=== PATIENT | female | born 1990 | race Hispanic/Latino ===

== ENCOUNTER 2021-07-17 09:11 | Emergency (ER) | payer BC ==
[2021-07-17 10:00] LABS: Urine Blood Negative (Negative); Urine Glucose Negative (Negative); Urine Protein Negative (Negative)
[2021-07-17 10:27] LABS: Absolute Lymphocytes (CBC) 1.7 K/uL (0.7-4.9); Basophils % 0.4 % (0-1.3); Hematocrit 38.3 % (36.0-45.0); Lymphocytes % 13.7 % (15.3-44.8); MPV 8.6 fL (7.6-11.3); RBC Red Blood Cell Count 4.19 M/uL (3.86-4.86)
[2021-07-17 10:35] LABS: ALT/SGPT 16 U/L (12-78); AST/SGOT 10 U/L (15-37); Albumin 3.1 g/dL (3.4-5.0); Alkaline Phosphatase 58 U/L (45-117); BUN Blood Urea Nitrogen 9 mg/dL (7-18); Bicarbonate 25 mmol/L (21-32); Bilirubin Direct < 0.1 mg/dL (0-0.2); Bilirubin Total 0.3 mg/dL (0.2-1.0); Glucose Level 95 mg/dL (74-106); Lipase 121 U/L (73-393); Potassium 3.7 mmol/L (3.5-5.1); Protein, Total 7.5 g/dL (6.4-8.2); Sodium Level 137 mmol/L (136-145); Uric Acid 3.4 mg/dL (2.6-6.0)
--- NOTE | 2021-07-17 10:56 | RAD REPORT ---
EXAM DESCRIPTION: US - OB Limited - 07/17/2021 10:43 am CLINICAL HISTORY: ABD PAIN COMPARISON: OB Complete dated 07/29/2017 FINDINGS: A single cephalic presenting gestation is identified. Heart rate normal. The placenta is a nterior. The cervix measures 4.2 cm and is closed. The right ovary was visualized and measures 4 cm and is oth erwise unremarkable. The femur length measures 2.3 cm which is consistent with 16 weeks 5 days. Single viable IUP with positive heart tones measuring 16 week 5 day with estimated delivery o f 12/27/2021.
--- NOTE | 2021-07-17 11:14 | ER ---
Nurse's Notes [facility] Name: Miryam Monge Age: 31 yrs Sex: Female : 1990 Arrival Date: 07/17/2021 Time: 09:16 Bed 19 Private MD: Nolvia Reyes Diagnosis: Nausea Presentation: 07/17 09:20 Chief complaint: Patient states: Pt is 17 weeks and began to feel dizzy and vg1 nausea a couple of hours ago and for the past three days has had a headache and had two nose bleeds yesterday. BP yesterday was 170/90. Was given BUT/ACETAMINOPHEN CAF by Dr Orozco, but pt wants to see whats going on before taking medication. Coronavirus screen: Vaccine status: Client denies travel out of the [place] in the last 14 days. Ebola Screen: Patient negative for fever greater than or equal to 101.5 degrees Fahrenheit, and additional compatible Ebola Virus Disease symptoms. Initial Sepsis Screen: Does the patient meet any 2 criteria? No. Patient's initial sepsis screen is negative. Does the patient have a suspected source of infection? No. Patient's initial sepsis screen is negative. Risk Assessment: Do you want to hurt yourself or someone else? Patient reports no desire to harm self or others. Onset of symptoms was July 14, 2021. 09:20 Method Of Arrival: Ambulatory [facility] 09:20 Acuity: GALINDO 3 vg1 Triage Assessment: 09:26 Headache History: The patient has had previous headaches and this one is similar to vg1 previous episodes. General: Appears in no apparent distress. uncomfortable, Behavior is calm, cooperative. Pain: Complains of pain in head Pain currently is 3 out of 10 on a pain scale. Pain began 2-3 days ago. Also complains of nausea. Neuro: Level of Consciousness is awake, alert, obeys commands, Oriented to person, place, time, situation. 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 - Social history:: Smoking status: Patient denies any tobacco usage or history of. Patient/guardian denies using alcohol, street drugs, The patient lives with family. - Family history:: not pertinent. Screenin:30 Abuse screen: Denies threats or abuse. sl2 12:30 Nutritional screening: No deficits noted. Tuberculosis screening: No symptoms or risk sl2 factors identified. Fall Risk None identified. Assessment: 10:41 Reassessment: Ultrasound completed - patient has been returned to the unit, patient sl2 ambulated to restroom with steady gait noted, denies dizziness at this time - c/o head-ache . 12:30 Pain: Denies pain. sl2 Vital Signs: 09:20 BP 133 / 77; Pulse 92; Resp 16; Temp 98.5; Pulse Ox 100% ; Weight 53.52 kg; Height 5 vg1 ft. 0 in. (152.40 cm); Pain 3/10; 09:35 BP 134 / 73; Pulse 74; Resp 18; Pulse Ox 100% on R/A; sl2 10:00 BP 126 / 65; Pulse 76; Resp 18; Temp 98.4; Pulse Ox 100% ; sl2 10:45 BP 126 / 70; Pulse 71; Resp 18; Temp 98.2; Pulse Ox 100% ; sl2 11:45 BP 127 / 72; Pulse 72; Resp 18; Temp 100; sl2 12:30 BP 120 / 76; Pulse 78; Resp 18; Temp 98.2; Pulse Ox 100% ; sl2 13:00 BP 118 / 54; Pulse 88; Resp 19; Temp 98.2; Pulse Ox 99% ; sl2 09:20 Body Mass Index 23.05 (53.52 kg, 152.40 cm) vg1 ED Course: 09:16 Patient arrived in ED. mr 09:17 Nolvia Reyes MD is Private Physician. mr 09:20 Inserted saline lock: 22 gauge in left antecubital area, using aseptic technique. sl2 09:26 Triage completed. vg1 09:26 Arm band placed on. vg1 09:32 Nenita Raymond MD is Attending Physician. ma2 10:39 Molly Aaron RN is Primary Nurse. sl2 10:39 OB Limited In Process Unspecified. EDMS 10:40 Patient moved back from ultrasound. sl2 12:30 Patient has correct armband on for positive identification. Bed in low position. Call sl2 light in reach. Side rails up X2. 12:30 No provider procedures requiring assistance completed. sl2 13:10 IV discontinued, intact, bleeding controlled, No redness/swelling at site. Pressure sl2 dressing applied. Administered Medications: 11:29 Drug: metoCLOPramide 5 mg Route: IVP; Site: left antecubital; sl2 12:30 Follow up: Response: No adverse reaction; Marked relief of symptoms sl2 11:32 Drug: NS 0.9% 1000 ml Route: IV; Rate: 1 bolus; Site: left antecubital; sl2 12:45 Follow up: Response: No adverse reaction; Marked relief of symptoms; IV Status: sl2 Completed infusion; IV Intake: 1000ml Intake: 12:45 IV: 1000ml; Total: 1000ml. sl2 Outcome: 11:14 Discharge ordered by . ma2 12:32 Discharge ordered by . ma2 13:09 Discharged to home ambulatory. sl2 13:09 Condition: stable 13:09 Discharge instructions given to patient, Instructed on discharge instructions, follow up and referral plans. medication usage, Demonstrated understanding of instructions, follow-up care, medications, Prescriptions given X 1. 13:11 Patient left the ED. sl2 Signatures: Dispatcher [employer] [facility] BenedictDiamantelienNenita MD MD ma2 Carla Puckett RN RN 1 Molly Aaron RN RN sl2
--- NOTE | 2021-07-17 11:14 | EDPHYS ---
Physician Documentation [facility] Name: Miryam Monge Age: 31 yrs Sex: Female : 1990 Arrival Date: 07/17/2021 Time: 09:16 Bed 19 Private MD: Nolvia Reyes ED Physician Nenita Raymond HPI: 07/17 09:52 This 31 yrs old Female presents to ER via Ambulatory with complaints of 17 wks ma2 , High Blood Pressure, Headache. 09:52 Onset: The symptoms/episode began/occurred gradually, 1 day(s) ago. Associated signs ma2 and symptoms: Pertinent negatives: dizziness, headache, nausea, visual changes, vomiting, weakness. Severity of symptoms: At its worst the blood pressure was mild, in the emergency department the blood pressure is unchanged. The patient has experienced a previous episode. 31-year-old female +1. She is 17 weeks , here with mild headache and nausea, started last night, improved. She thinks she is dehydrated as well. She is here because her blood pressure was 170/90 last night, however it went down spontaneously after she took Tylenol for headaches. She also had 2 episodes of epistaxis last night, no similar episodes this morning. She had preeclampsia in her last and was induced at 38 weeks.. 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 - Social history:: Smoking status: Patient denies any tobacco usage or history of. Patient/guardian denies using alcohol, street drugs, The patient lives with family. - Family history:: not pertinent. ROS: 09:52 Constitutional: Negative for fever, chills, and weight loss. ma2 09:52 Neuro: Negative for altered mental status, dizziness, headache, loss of consciousness, seizure activity, syncope, near syncope, tinnitus, tremor, visual changes, weakness. 09:52 All other systems are negative. Exam: 09:52 Constitutional: This is a well developed, well nourished patient who is awake, alert, ma2 and in no acute distress. Head/Face: Normocephalic, atraumatic. Eyes: Pupils equal round and reactive to light, extra-ocular motions intact. Lids and lashes normal. Conjunctiva and sclera are non-icteric and not injected. Cornea within normal limits. Periorbital areas with no swelling, redness, or edema. ENT: Nares patent. No nasal discharge, no septal abnormalities noted. Tympanic membranes are normal and external auditory canals are clear. Oropharynx with no redness, swelling, or masses, exudates, or evidence of obstruction, uvula midline. Mucous membranes moist. Neck: Trachea midline, no thyromegaly or masses palpated, and no cervical lymphadenopathy. Supple, full range of motion without nuchal rigidity, or vertebral point tenderness. No Meningismus. Chest/axilla: Normal chest wall appearance and motion. Nontender with no deformity. No lesions are appreciated. Cardiovascular: Regular rate and rhythm with a normal S1 and S2. No gallops, murmurs, or rubs. Normal PMI, no JVD. No pulse deficits. Respiratory: Lungs have equal breath sounds bilaterally, clear to auscultation and percussion. No rales, rhonchi or wheezes noted. No increased work of breathing, no retractions or nasal flaring. Abdomen/GI: Gravid uterus, nontender. Soft, non-tender, with normal bowel sounds. No distension or tympany. No guarding or rebound. No evidence of tenderness throughout. Back: No spinal tenderness. No costovertebral tenderness. Full range of motion. Skin: Warm, dry with normal turgor. Normal color with no rashes, no lesions, and no evidence of cellulitis. MS/ Extremity: Pulses equal, no cyanosis. Neurovascular intact. Full, normal range of motion. Neuro: Awake and alert, GCS 15, oriented to person, place, time, and situation. Cranial nerves II-XII grossly intact. Motor strength 5/5 in all extremities. Sensory grossly intact. Cerebellar exam normal. Normal gait. Psych: Awake, alert, with orientation to person, place and time. Behavior, mood, and affect are within normal limits. Vital Signs: 09:20 BP 133 / 77; Pulse 92; Resp 16; Temp 98.5; Pulse Ox 100% ; Weight 53.52 kg; Height 5 vg1 ft. 0 in. (152.40 cm); Pain 3/10; 09:35 BP 134 / 73; Pulse 74; Resp 18; Pulse Ox 100% on R/A; sl2 10:00 BP 126 / 65; Pulse 76; Resp 18; Temp 98.4; Pulse Ox 100% ; sl2 10:45 BP 126 / 70; Pulse 71; Resp 18; Temp 98.2; Pulse Ox 100% ; sl2 11:45 BP 127 / 72; Pulse 72; Resp 18; Temp 100; sl2 12:30 BP 120 / 76; Pulse 78; Resp 18; Temp 98.2; Pulse Ox 100% ; sl2 13:00 BP 118 / 54; Pulse 88; Resp 19; Temp 98.2; Pulse Ox 99% ; sl2 09:20 Body Mass Index 23.05 (53.52 kg, 152.40 cm) vg1 MDM: 09:32 Patient medically screened. tn2 09:52 Differential diagnosis: Unlikely preeclampsia, as she is only 17 weeks . And ma2 her blood pressure is normal. Differential diagnoses include dehydration, UTI, hyperemesis gravidarum. Nausea. 11:13 Data reviewed: vital signs, nurses notes. Counseling: I had a detailed discussion with ma2 the patient and/or guardian regarding: the historical points, exam findings, and any diagnostic results supporting the discharge/admit diagnosis, the presence of at least one elevated blood pressure reading (>120/80) during this emergency department visit, the need for outpatient follow up. Response to treatment: the patient's symptoms have markedly improved after treatment. 07/17 09:37 Order name: Basic Metabolic Panel [facility] 07/17 09:37 Order name: CBC with Diff; Complete Time: 11: [facility] 07/17 09:37 Order name: Hepatic Function; Complete Time: 11: [facility] 07/17 09:37 Order name: Lipase; Complete Time: 11: [facility] 07/17 09:37 Order name: LDH; Complete Time: 11:02 [facility] 07/17 09:37 Order name: Uric Acid; Complete Time: 11:02 [facility] 07/17 09:37 Order name: Basic Metabolic Panel; Complete Time: 11: EDMS 07/17 09:51 Order name: HCG-Quantitative ma2 07/17 09:52 Order name: HCG, Quantitative; Complete Time: 11:02 EDMS 07/17 09:59 Order name: Urine Dipstick-Ancillary; Complete Time: 10:02 EDMS 07/17 10:00 Order name: Urine --Ancillary (enter results); Complete Time: 11:02 bd 07/17 10:23 Order name: COVID-19 SARS RT PCR (Document "Date of Onset" if Symptomatic); Complete bd Time: 11:30 07/17 09:37 Order name: IV Saline Lock; Complete Time: 10:40 ma2 07/17 09:37 Order name: Labs collected and sent; Complete Time: 10:39 ma2 07/17 09:37 Order name: Urine Dipstick-Ancillary (obtain specimen) ma2 07/17 09:56 Order name: OB Limited; Complete Time: 11:02 EDMS Administered Medications: 11:29 Drug: metoCLOPramide 5 mg Route: IVP; Site: left antecubital; 2 12:30 Follow up: Response: No adverse reaction; Marked relief of symptoms 2 11:32 Drug: NS 0.9% 1000 ml Route: IV; Rate: 1 bolus; Site: left antecubital; 2 12:45 Follow up: Response: No adverse reaction; Marked relief of symptoms; IV Status: sl2 Completed infusion; IV Intake: 1000ml Disposition Summary: 07/17/21 12:32 Discharge Ordered Location: Home(07/17/21 12:32) ma2 Condition: Stable(07/17/21 12:32) ma2 Diagnosis - Nausea(07/17/21 12:32) ma2 Followup: ma2 - With: Private Physician - When: Tomorrow - Reason: Continuance of care Discharge Instructions: - Discharge Summary Sheet ma2 - Nausea, Adult ma2 Forms: - Medication Reconciliation Form ma2 - Thank You Letter ma2 - Antibiotic Education ma2 - Prescription Opioid Use ma2 Prescriptions: - VITAMIN b6 - take 10 milligram by ORAL route every 6 hours; 20 milligram; Refills: 0, ma2 Product Selection Permitted Signatures: [facility] Nenita Raymond MD MD ma2 Carla Puckett RN RN 1 Landell, Molly, RN RN sl2 Corrections: (The following items were deleted from the chart) 09:56 09:52 OB Complete+US.ARIANA.YADIRA ordered. EDMS EDMS 11:14 Home ma2 ma2 11:14 Stable ma2 ma2 11:14 Nausea ma2 ma2
[2021-07-17] MEDS ORDERED: NA CHLORIDE 0.9% 1,000 ML ONE (11:26)
[2021-07-17] MEDS ORDERED: METOCLOPRAMIDE 10 MG/2mL INJ ONE (11:28)
[2021-07-17 14:06] VITALS: TEMP 98.2
[2021-07-17 14:07] VITALS: BP 118/54; O2SAT 99
--- OUTSIDE RECORDS SUMMARY | 2021-07-20 18:56 | XMS REPORT | Continuity of Care Document ---
:[address] [facility] t Address [address] [place] [address] Care Team Providers Name Role Phone NACHO Attending Clinician Unavailable NACHO Admitting Clinician Unavailable Payers Payer Name Policy Type Policy Number Effective Date Expiration Date S ource Problems Condition Condition Condition Status Onset Resolution Last Treating Co mments Source Name Details Category Date Date Treatment Clinician Date Problem Active 2020-09 [place] 09-07 [facility] 00:00: Medical 00 Group Nummular Nummular Problem Active [place] eczema [facility] Allergies, Adverse Reactions, Alerts This patient has no known allergies or adverse reactions. Social History Smoking Status Start Date Stop Date Source Former Smoker [place] [facility] Current Every Day Smoker [facility] Medications Ordered Filled Start Stop Current Ordering Indication Dosage Frequency Signature Comments Components Source Medication Medication Date Date Medication? Clinician (SIG) Name Name Adderall Adderall Yes Na Reyes [address] [facility] Lamictal Lamictal Yes Na Reyes [address] [facility] dextroamphe dextroamphe No dextroamph [place] tamine-amph tamine-amph etamine-am da etamine 20 etamine 20 phetamine [facility] tablet mg tablet 20 mg al TAKE 2 TAKE 2 tablet Health TABLETS BY TABLETS BY TAKE 2 O [facility] MOUTH EVERY MOUTH EVERY TABLETS BY h MORNING AND MORNING AND MOUTH Program 1 TABLET 1 TABLET EVERY EVERY EVERY MORNING AFTERNOON AFTERNOON AND 1 TABLET EVERY AFTERNOON Loestrin Fe Loestrin Fe No 1 Q1D Loestrin [place] 09/26 09/26 Fe 09/26 da (28-Day) 1 (28-Day) 1 (28-Day) 1 [facility] mg-20 mcg mg-20 mcg mg-20 mcg al (21)/75 mg (21)/75 mg (21)/75 mg Health (7) tablet (7) tablet (7) tablet Outreac Take 1 Take 1 Take 1 h tablet tablet tablet Program every day every day every day by oral by oral by oral route. route. route. Nexplanon Nexplanon Yes Na Reyes as [facility] COVID-19 COVID-19 No COVID-19 [place] test test test da specimen specimen specimen Med ical collection collection collection Group TEST TEST TEST DIRECTED DIRECTED DIRECTED folic acid folic acid No 1 Q1D folic acid [place] 1 mg tablet 1 mg tablet 1 mg d a Take 1 Take 1 tablet Medical tablet tablet Take 1 Group every day every day tablet by oral by oral every day route. route. by oral route. omeprazole omeprazole No 1capsul Q1D omeprazole [place] 40 mg 40 mg e(s) 40 mg da capsule,del capsule,del capsule,de Medical ayed ayed layed Group release release release Take 1 Take 1 Take 1 capsule capsule capsule every day every day every day by oral by oral by oral route. route. route. Reglan 10 Reglan 10 No 1 Q6H Reglan 10 [place] mg tablet mg tablet mg tablet da Take 1 Take 1 Take 1 Medical tablet tablet tablet Group every 6 every 6 every 6 hours by hours by hours by oral route oral route oral route as needed. as needed. as needed. Vital Signs Vital Name Observation Time Observation Value Comments Source BP Diastolic 2021-07-08 00:00:00 86 mm[Hg] [facility] Height 2021-07-08 00:00:00 61 [in_i] [facility] BMI (Body Mass 2021-07-08 00:00:00 22.3 kg/m2 [facility] director emergency department Medical Index) Group BP Systolic 2021-07-08 00:00:00 133 mm[Hg] [facility] Body Weight 2021-07-08 00:00:00 118 [lb_av] [facility] BP Diastolic 2021-05-16 00:00:00 87 mm[Hg] [facility] Height 2021-05-16 00:00:00 61 [in_i] [facility] BMI (Body Mass 2021-05-16 00:00:00 21.5 kg/m2 [facility] Medical Index) Group BP Systolic 2021-05-16 00:00:00 136 mm[Hg] [facility] Body Weight 2021-05-16 00:00:00 114 [lb_av] [facility] Body Weight 2021-02-18 00:00:00 117 [lb_av] [facility] Procedures Procedure Date / Time Performing Clinician Source Performed ULTRASOUND, 2021-07-08 00:00:00 [facility] UTERUS REAL TIME WITH Group IMAGE DOC, AND MATERNAL EVAL PLUS DETAILED ANATOMIC EXAMINATION, TRANSABDOMINAL APPROACH; SINGLE OR FIRST GESTATION US, obstetric, limited 2021-07-08 00:00:00 [facility] Group ULTRASOUND, 2021-05-16 00:00:00 [facility] UTERUS REAL TIME WITH Group IMAGE DOCUMENTAITON, TRANSVAGINAL Plan of Care Planned Activity Planned Date Details Comments Source Diagnostic Test 2021-07-08 HIV (1+2) Ab screen, [facility] Pending 00:00:00 serum [code = HIV Group (1+2) Ab screen, serum] Diagnostic Test 2021-07-08 RPR (rapid plasma [facility] Pending 00:00:00 reagin), serum [code Group = RPR (rapid plasma reagin), serum] Diagnostic Test 2021-07-08 HBsAg (hepatitis B [facility] Pending 00:00:00 surface Ag), serum Group [code = HBsAg (hepatitis B surface Ag), serum] Diagnostic Test 2021-07-08 CBC w/ auto diff [facility] Pending 00:00:00 [code = CBC w/ auto Group diff] Diagnostic Test 2021-07-08 Blood group antibody [facility] Pending 00:00:00 screen [Presence] in Group Serum or Plasma [code = 890-4] Diagnostic Test 2021-07-08 ABO and Rh group [facility] Pending 00:00:00 panel - Blood [code Group = 32194-6] Diagnostic Test 2021-07-08 drug screen, urine [place] director emergency department Medical Pending 00:00:00 [code = drug screen, Group urine] Diagnostic Test 2021-07-08 culture, urine [code [facility] Pending 00:00:00 = culture, urine] Group Diagnostic Test 2021-07-08 rubella Ab, titer, [place] director emergency department Medical Pending 00:00:00 serum [code = Group rubella Ab, titer, serum] Diagnostic Test 2021-07-08 TSH + free T4, serum [facility] Pending 00:00:00 [code = TSH + free Group T4, serum] Diagnostic Test 2021-07-08 pap, LB + CT/NG/TV + [facility] Pending 00:00:00 reflex HR HPV [code Group = pap, LB + CT/NG/TV + reflex HR HPV] Diagnostic Test 2021-07-08 chromosome [place] Pending 00:00:00 13+18+21+X+Y Group aneuploidy, blood [code = chromosome 13+18+21+X+Y aneuploidy, blood] Future Appointment 2021-08-05 Mariana Orozco [facility] 00:00:[address] [place] [address] Group [address]; , [place] [address] Encounters Start End Encounter Admission Attending Care Care Encounter Source Date/Time Date/Time Type Type Clinicians Facility Department ID 2021-07-19 Outpatient [facility] [id number] [place] 16:07:30 [facility] 2021-07-19 Outpatient SWATHI[facility] [id number] [place] 16[facility]00:47 [facility] 2021-07-19 2021-07-19 ambulatory [facility] [id number] [facility] 00:00[facility]00 00[facility] 2021-07-08 2021-07-08 Mariana [facility] [place] - [id number] M [facility] 00:00:00 00:00:00 Clayton Frazier MD: [address] [address] , Ph. [phone] 2021-05-16 2021-05-16 Matthew [facility] [place] - [id number] M [facility] 00:00:00 00:00:00 Discovery susan Costello MD: [address] [place] [phone] , Ph. [phone] 2021-05-15 2021-05-15 Outpatient [id number] 2021-05-14 2021-05-14 Outpatient [facility] [id number] [facility] 2021-04-18 2021-04-18 Outpatient [facility] [id number] [facility] 2021-04-16 2021-04-16 Outpatient [facility] [id number] [facility] 2021-04-12 2021-04-12 Outpatient [facility] [id number] [facility] 2021-03-19 2021-03-19 Outpatient [facility] [id number] [facility] 2021-03-05 2021-03-05 Outpatient [facility] [id number] [facility] 2021-02-21 2021-02-21 Outpatient [facility] [id number] [facility] 2021-02-18 2021-02-18 Yolanda ELENI [place] - [id number] Bonnie bobby 00:00:00 00:00:00 Nikki Lindsay, [facility] [employer] 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 2021-02-11 2021-02-11 Outpatient [facility] [id number] [facility] 2021-02-08 2021-02-08 Outpatient [facility] [id number] [facility] 2021-02-07 2021-02-07 Outpatient [facility] [id number] [facility] 2021-01-22 2021-01-22 Outpatient [facility] [id number] [facility] 2021-01-22 2021-01-22 Outpatient [facility] [id number] [facility] 2020-12-24 2020-12-24 Outpatient [facility] [id number] [facility] 2020-12-24 2020-12-24 Outpatient [facility] [id number] [facility] 2020-11-26 2020-11-26 Outpatient [facility] [id number] [facility] 2020-10-26 2020-10-26 Outpatient [facility] [id number] [facility] 2020-10-01 2020-10-01 Outpatient [facility] [id number] [facility] 2020-09-05 2020-09-05 Outpatient [facility] [id number] [facility] 2020-07-31 2020-07-31 Outpatient [facility] [id number] [facility] 2020-07-02 2020-07-02 Outpatient [facility] [id number] [facility] 2020-05-29 2020-05-29 Outpatient [facility] [id number] [facility] 2020-05-02 2020-05-02 [facility] [id number] 09:40:00 09:40:00 [place] [employer] [place] s - Drive [facility] l Medicine Outpati ent Clinics 2020-04-03 2020-04-03 [facility] [id number] 14:11:00 14:11:00 [place] [employer] s - Drive [facility] l Medicine Outpati ent Clinics 2020-04-02 2020-04-02 [facility] [id number] 14:44:00 14:44:00 [place] [employer] Luke s - Drive [facility] l Medicine Outpati ent Clinics 2020-03-05 2020-03-05 [facility] [id number] 10:00:00 10:00:00 [place] [employer] s - Drive [facility] l Medicine Outpati ent Clinics 2020-01-26 2020-01-26 [facility] [id number] 10:07:00 10:07:00 [place] [employer] s - Drive [facility] Medicine l Medicine Outpati ent Clinics 2019-12-28 2019-12-28 [facility] [id number] 11:20:00 11:20:00 [place] [employer] s - Drive [facility] Medicine l Medicine Outpati ent Clinics 2019-11-24 2019-11-24 [facility] [id number] 09:07:00 09:07:00 [place] [employer] s - Drive [facility] Medicine l Medicine Outpati ent Clinics 2019-10-27 2019-10-27 [facility] [id number] 09:00:00 09:00:00 [place] [employer] - Drive [facility] Medicine l Medicine Outpati ent Clinics 2019-09-27 2019-09-27 [facility] [id number] 09:40:00 09:40:00 [place] [employer] - [facility] [facility] l Medicine Outpati ent Clinics 2019-08-24 2019-08-24 [facility] [id number] 10:00:00 10:00:00 [place] [employer] - [employer] [facility] Medicine Outpati ent Clinics 2019-07-25 2019-07-25 [facility] [id number] 11:00:00 11:00:00 [place] [employer] - [employer] [facility] Medicine l Medicine Outpati ent Clinics 2019-06-22 2019-06-22 [facility] [id number] 11:20:00 11:20:00 t Ar[place] Reed s - [employer] [facility] Medicine l Medicine Outpati ent Clinics 2018-11-03 2018-11-03 [facility] [id number] 15:00:00 15:00:00 [place] [employer] [facility] Medicine l Medicine Outpati ent Clinics 2018-10-28 2018-10-28 [facility] [id number] 13:27:00 13:27:00 [place] [employer] - [facility]ul[facility] l Medicine Outpati ent Clinics 2018-05-28 2018-05-28 [facility] [id number] 07:23:00 07:23:00 [place] [employer] - Drive [facility] Medicine l Medicine Outpati ent Clinics 2018-04-27 2018-04-27 [facility] [id number] 15:30:00 15:30:00 [place] [employer] Luke s - Drive [facility] Medicine Medicine Outpati ent Clinics 2018-04-27 2018-04-27 [facility] [id number] 12:02:00 12:02:00 [place] [employer] - Drive [facility] Medicine l Medicine Outpati ent Clinics 2018-04-21 2018-04-21 [facility] [id number] 09:45:00 09:45:00 [place] [employer] s - Drive [facility] Medicine l Medicine Outpati ent Clinics 2018-04-19 2018-04-19 [facility] [id number] 09:20:00 09:20:00 [place] [employer] s - Drive [facility] l Medicine Outpati ent Clinics 2018-04-15 2018-04-15 [facility] [id number] 15:33:00 15:33:00 [place] [employer] s - Drive [facility] Medicine l Medicine Outpati ent Clinics 2018-04-08 2018-04-08 [facility] [id number] 15:15:00 15:15:00 [place] [employer] s - Drive [facility] Medicine l Medicine Outpati ent Clinics 2018-03-25 2018-03-25 [facility] [id number] 15:15:00 15:15:00 [place] [employer] - Drive [facility] Medicine l Medicine Outpati ent Clinics 2018-03-09 2018-03-09 [facility] [id number] 08:00:00 08:00:00 [place] [employer] [employer] s - Drive [facility] Medicine l Medicine Outpati ent Clinics 2018-03-03 2018-03-03 [facility] [id number] 14:00:00 14:00:00 t Women's [facility] [place] [facility] - [facility] l Outpati ent Clinics 2018-02-24 2018-02-24 [facility] [id number] 13:45:00 13:45:00 [place] [employer] s - [facility] 2018-01-25 2018-01-25 [facility] [id number] 15:30:00 15:30:[address] [place] [address] - Drive [facility] 2017-12-23 2017-12-23 Out[facility] [id number] 14:30:00 14:30:[address] Luke [address] - Drive [facility] 2017-12-01 2017-12-01 Outpatient [facility] [id number] 09:54[facility]00 09:54[facility]00 [facility] 2017-11-25 2017-11-25 Outpatient Nitza Goddardt [id number] 09:30[facility]00 09:30[facility] Results Test Description Test Time Test Comments Results Result Comments Source test, urine 2021-05-16 15:38:00 Test Item Value Reference Range Interpretation Comme nts Test (test code = Test) positive [facility] - [id number] 15:38:00 Test Item Value Reference Range Interpretation Comments Leukocytes (test code = Leukocytes) Negative Nitrite (test code = Nitrite) negative Urobilinogen (test code = .2 Urobilinogen) Protein (test code = Protein) Negative pH (test code = pH) 6.0 Blood (test code = Blood) Negative Specific Furlong (test code = 1.025 Specific [place]long) Ketone (test code = Ketone) Negative Bilirubin (test code = Bilirubin) Negative Glucose (test code = Glucose) Negative Appearance (test code = Appearance) Clear Color (test code = Color) Yellow [facility]
== END 2021-07-17 13:11 | disposition home or self-care (01) ==
LOC: ER 09:11
DX: O26.892 Other specified pregnancy related conditions, second trimester (principal); Z3A.17 17 weeks gestation of pregnancy; R11.0 Nausea; Z88.6 Allergy status to analgesic agent; Z20.822 Contact with and (suspected) exposure to COVID-19
CPT/HCPCS: 96361; 85025; 80048; 36415; 83615; 81025; 80076; 84550; 84702; 81003; 83690; 76815; 96374; 99284; U0003; J2765; J7030

== ENCOUNTER 2023-04-22 07:06 | Emergency (ER) | payer BC ==
--- OUTSIDE RECORDS SUMMARY | 2023-04-22 07:12 | XMS REPORT | Continuity of Care Document ---
:1990 Author Organization [facility] t Address [address]. [address] [place] [address] Care Team Providers Name Role Phone Manisha Ohara Attending Clinician Unavailable Thaddeus Harris Attending Clinician Unavailable PATEL_NILESH Attending Clinician Unavailable VIV VERAS Attending Clinician Unavailable LAB90 Attending Clinician Unavailable SWATHI_KINA Attending Clinician Unavailable G_Paplexy Attending Clinician Unavailable LACHELLE TURNER Attending Clinician Unavailable MARIAN LEVINE Attending Clinician Unavailable ROBERTO WATTERS Attending Clinician Unavailable FRANSISCO WATTERS Attending Clinician Unavailable CONSTANCE OWENS Attending Clinician Unavailable MARYLIN ONOFRE Attending Clinician Unavailable PATEL_NILESH Admitting Clinician Unavailable NACHO Admitting Clinician Unavailable Man_Paplexy Admitting Clinician Unavailable LACHELLE TURNER Admitting Clinician Unavailable Payers Payer Name Policy Type Policy Number Effective Date Expiration Date S [place] [id number] 2021 OF [place]PPO[place]:00 BC[place] 2 [id number] 2022 00:00:00 [place] [id number] 2021 [place]:00 Blue Cross 6 [id number] Common Spiri t Blue Shield of [facility] Problems Condition Condition Condition Status Onset Resolution Last Treating Co mments Source Name Details Category Date Date Treatment Clinician Date ADHD ADHD Disease Active Overview: Mariah 01-27 Formattin Seybold 00:00: g of this note Externa might be l different from the original. 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 Other Other Disease Active Mariah constipati constipati 01-27 Se ybold on on 00:00: - 00 Externa l Class 2 Class 2 Disease Active Mariah obesity obesity 01-27 Seybold due to due to 00:00: - excess excess 00 Externa calories calories l without without serious serious comorbidit comorbidit y with y with body mass body mass index index (BMI) of (BMI) of 35.0 to 35.0 to 35.9 in 35.9 in adult adult [id number] Allergic Problem Commo n rhinitis, [facility]if[facility], Medical unspecifie Center d trigger Thyroid Abnormal Problem Common function thyroid Spirit tests function - [facility] abnormal test [facility] Screening Screening Problem Com mon for for Spirit [facility] Anxiety Problem Common [facility] Fatigue Fatigue Problem [facility] High blood High blood Problem C ommon pressure pressure [facility] [id number] Pollen Problem Common allergies [facility] [id number] Acute UTI Problem Com mon (urinary Spirit tract - [facility]I infection) [facility] [id number] Bipolar 1 Problem Comm on disorder, Spirit depressed [facility] [id number] Multiple Problem Comm on drug Spirit allergies - [facility] [id number] Dysuria Problem Common [facility] Attention ADD Problem Common deficit (attention Spiri t disorder deficit - [facility] disorder) without [facility] [id number] Encounter Problem Comm on for other Spirit general - [facility] counseling [facility] ion [id number] Encounter Problem Com mon for Spirit routine - [facility] follow[facility]up [facility] [id number] Depressed Problem Com mon mood with Spirit feeling of - [facility] loneliness [facility] Nummular Nummular Problem Active [place] [facility] Allergies, Adverse Reactions, Alerts This patient has no known allergies or adverse reactions. Social History Social Habit Start Date Stop Date Quantity Comments Source Gender identity Mariah scruggs - External Sexual orientation Mariah Orr - External History of tobacco Cigarette Smoker Mariah Orr use - External Education 2023-01-27 2023-01-27 16 Mariah Orr 00:00:00 00:00:00 - External Alcohol Comment 2023-01-27 2023-01-27 daily Mariah scruggs 00:00:00 00:00:00 - External Cigarettes smoked 2023-01-27 2023-01-27 Mariah Orr current (pack per 00:00:00 00:00:00 - Exter nal day) - Reported Cigarette 2023-01-27 2023-01-27 Mariah Orr pack-years 00:00:00 00:00:00 - External Tobacco use and 2023-01-27 2023-01-27 Smokeless tobacco Otf Orr exposure 00:00:00 00:00:00 non-user - External Alcohol intake 2023-01-27 2023-01-27 3 /d Mariah gutierrez 00:00:00 00:00:00 - External Tobacco Comment 2023-01-26 2023-01-26 Stopped 5 yrs ago Otf Orr 00:00:00 00:00:00 - External History of Social 2023-01-26 2023-01-26 Mariah Orr function 00:00:00 00:00:00 - External Sex Ass[birth year] At [birth year] Mariah scruggs 00:00:00 00:00:00 - External Smoking Status Start Date Stop Date Source Current Every Day [facility] Smoker Ex-smoker 2023-01-27 00:00:00 2023-01-27 00:00:00 Mariah S eybold - External Never Smoker Common [facility] - [facility] nter Medications Ordered Filled Start Stop Current Ordering Indication Dosage Frequency Signature Comments Components Source Medication Medication Date Date Medication? Clinician (SIG) Name Name Probiotic Yes 1{capsu Take 1 Leonel sey Product 01-27 le} capsule by Seybol d (Probiotic 11:07: mouth - Acidophilus 49 daily Externa Beads) oral l Capsule Dexmethylph 2022- No 40mg Take 1 Leonel sey enidate HCl 5- 05-23 capsule Seyb old 40 MG oral 10:57: 00:00 (40 mg - Capsule 24 36 :00 total) by Exte rna Hour mouth l Sustained daily Release Lurasidone Yes [id number] 1{tbl} Take 1 Mariah HCl 40 MG 5-22 tablet by Seybo ld oral Tablet 14:43: mouth - 38 every Externa night at l bedtime Meclizine Meclizine No 1{table BID Meclizine HCl 12.5 MG HCl 12.5 MG 3-03 t_as_ne HCl 12.5 00:00: eded} MG 00 Meclizine Meclizine No 1{table BID Meclizine HCl 12.5 MG HCl 12.5 MG 3-03 t_as_ne HCl 12.5 00:00: eded} MG 00 Adderall 20 Adderall 20 No 1{table Adderall MG MG 9-20 t} 20 MG 00:00: 00 Adderall 20 Adderall 20 No 1{table Adderall MG MG 8-16 t} 20 MG 00:00: 00 Adderall 20 Adderall 20 No 1{table Adderall MG MG 7-26 t} 20 MG 00:00: 00 Adderall 20 Adderall 20 No 1{table Adderall MG MG 6-07 t} 20 MG 00:00: 00 Mirena 20 Mirena 20 No Mirena 20 [place] mcg/24 mcg/24 5-25 mcg/24 da hours (8 hours (8 16:31: hours (8 M edical yrs) 52 mg yrs) 52 mg 31 yrs) 52 mg Group intrauterin intrauterin intrauteri e e ne deviceTake deviceTake deviceTake 1 device by 1 device by 1 device intrauterin intrauterin by e route. e route. intrauteri ne route. Adderall 20 Adderall 20 2021-0 No 1{table Adderall MG MG 5-10 t} 20 MG 00:00: 00 Adderall 20 Adderall 20 2021-0 No 1{table Adderall MG MG 4-12 t} 20 MG 00:00: 00 Adderall 20 Adderall 20 2021-0 No 1{table Adderall MG MG 3-02 t} 20 MG 00:00: 00 Adderall 20 Adderall 20 2021-0 No 1{table MG MG 2-09 t} 00:00: 00 Cetirizine Cetirizine 2021-0 No 1{table HCl 10 MG HCl 10 MG 2-09 t} 00:00: 00 Cetirizine Cetirizine 2021-0 No 1{table Cetirizine HCl 10 MG HCl 10 MG 2-09 t} HCl 10 MG 00:00: 00 Cetirizine Cetirizine 2021-0 No 1{table Cetirizine HCl 10 MG HCl 10 MG 2-09 t} HCl 10 MG 00:00: 00 Cetirizine Cetirizine 2021-0 No 1{table Cetirizine HCl 10 MG HCl 10 MG 2-09 t} HCl 10 MG 00:00: 00 Cetirizine Cetirizine 2021-0 No 1{table Cetirizine HCl 10 MG HCl 10 MG 2-09 t} HCl 10 MG 00:00: 00 Cetirizine Cetirizine 2021-0 No 1{table Cetirizine HCl 10 MG HCl 10 MG 2-09 t} HCl 10 MG 00:00: 00 Cetirizine Cetirizine 2021-0 No 1{table Cetirizine HCl 10 MG HCl 10 MG 2-09 t} HCl 10 MG 00:00: 00 Cetirizine Cetirizine 2021-0 No 1{table Cetirizine HCl 10 MG HCl 10 MG 2-09 t} HCl 10 MG 00:00: 00 Cetirizine Cetirizine No 1{table Cetirizine HCl 10 MG HCl 10 MG 2-09 t} HCl 10 MG 00:00: 00 Cetirizine Cetirizine 0 No 1{table Cetirizine HCl 10 MG HCl 10 MG 2-09 t} HCl 10 MG 00:00: 00 Adderall 20 Adderall 20 2021-0 No 1{table MG MG 1-11 t} 00:00: 00 Adderall 20 Adderall 20 2020- No 1{table Adderall MG MG 2-14 t} 20 MG 00:00: 00 Adderall 20 Adderall 20 2020- No 1{table Adderall MG MG 1-15 t} 20 MG 00:00: 00 Adderall 20 Adderall 20 2020-09 No 1{table Adderall MG MG 0-06 t} 20 MG 00:00: 00 Adderall 20 Adderall 20 2020-0 No Adderall MG MG 9-08 20 MG 00:00: 00 Adderall 20 Adderall 20 2020-0 No Adderall MG MG 9-08 20 MG 00:00: 00 Adderall Adderall 2019-0 Yes Na Harris 1 tablet Common 8- Spirit 00:00: - [facility] 00 [facility] Lamictal Lamictal 2019-0 Yes Na Harris 1 tablet Common 2-22 Spirit 00:00: - [facility] 00 [facility] LaMICtal LaMICtal 2019-0 No 1{table TID LaMICtal 100 MG 100 MG 2-22 t} 100 MG 00:00: 00 LaMICtal LaMICtal 2019-0 No 1{table TID LaMICtal 100 MG 100 MG 2-22 t} 100 MG 00:00: 00 LaMICtal LaMICtal 2019-0 No 1{table TID 100 MG 100 MG 2-22 t} 00:00: 00 LaMICtal LaMICtal 2019-0 No 1{table TID 100 MG 100 MG 2-22 t} 00:00: 00 LaMICtal LaMICtal 2019-0 No 1{table TID LaMICtal 100 MG 100 MG 2-22 t} 100 MG 00:00: 00 LaMICtal LaMICtal 2019-0 No 1{table TID LaMICtal 100 MG 100 MG 2-22 t} 100 MG 00:00: 00 LaMICtal LaMICtal 2018-0 No 1{table TID LaMICtal 100 MG 100 MG 2-22 t} 100 MG 00:00: 00 LaMICtal LaMICtal 2018-0 No 1{table TID LaMICtal 100 MG 100 MG 2-22 t} 100 MG 00:00: 00 LaMICtal LaMICtal 2019-0 No 1{table TID LaMICtal 100 MG 100 MG 2-22 t} 100 MG 00:00: 00 LaMICtal LaMICtal 2018-0 No 1{table TID LaMICtal 100 MG 100 MG 2-22 t} 100 MG 00:00: 00 LaMICtal LaMICtal 2018-0 No 1{table TID LaMICtal 100 MG 100 MG 2-22 t} 100 MG 00:00: 00 LaMICtal LaMICtal 2018-0 No 1{table TID LaMICtal 100 MG 100 MG 2-22 t} 100 MG 00:00: 00 LaMICtal LaMICtal 2018-0 No 1{table TID LaMICtal 100 MG 100 MG 2-22 t} 100 MG 00:00: 00 LaMICtal LaMICtal 2018-0 No 1{table TID LaMICtal 100 MG 100 MG 2-22 t} 100 MG 00:00: 00 LaMICtal LaMICtal 2018-0 No 1{table TID LaMICtal 100 MG 100 MG 2-22 t} 100 MG 00:00: 00 LaMICtal LaMICtal 2018-0 No 1{table TID LaMICtal 100 MG 100 MG 2-22 t} 100 MG 00:00: 00 Latuda 40 Latuda 40 No 1 Q1D Latuda 40 [place] mg tablet mg tablet mg tablet da Take 1 Take 1 Take 1 [facility] tablet tablet tablet al every day every day every day Health by oral by oral by oral Outrea c route at route at route at h dinner for dinner for dinner for Program 30 days. 30 days. 30 days. Vyvanse 70 Vyvanse 70 No 1capsul Q1D Vyvanse 70 [place] mg capsule mg capsule e(s) mg capsule da Take 1 Take 1 Take 1 [facility] capsule capsule capsule al every day every day every day Health by oral by oral by oral Outrea c route in route in route in h the morning the morning the P rogram for 30 for 30 morning days. days. for 30 days. dexmethylph dexmethylph No dexmethylp [place] enidate ER enidate ER henidate da 40 mg 40 mg ER 40 mg [facility] capsule,ext capsule,ext capsule,ex al ended ended tended Health release release release Outrea c [id number] h 50 TAKE ONE 50 TAKE ONE -50 TAKE Program (1) (1) ONE (1) CAPSULE(S) CAPSULE(S) CAPSULE(S) BY MOUTH BY MOUTH BY MOUTH EVERY EVERY EVERY MORNING. MORNING. MORNING. Focalin XR Focalin XR No 2capsul Q1D Focalin XR [place] 20 mg 20 mg e(s) 20 mg da capsule,ext capsule,ext capsule,ex [facility] ended ended tended al release release release Health Take 2 Take 2 Take 2 Outreac capsules capsules capsules h every day every day every day Program by oral by oral by oral route with route with route with meals. meals. meals. Lithobid Lithobid No 1 Q1D Lithobid [place] 300 mg 300 mg 300 mg da tablet,exte tablet,exte tablet,ext [facility] nded nded ended al release release release Health Take 1 Take 1 Take 1 Outreac tablet tablet tablet h every day every day every day Program by oral by oral by oral route at route at route at bedtime for bedtime for bedtime 30 days. 30 days. for 30 days. dextroamphe dextroamphe No dextroamph [place] tamine-amph tamine-amph etamine-am da etamine 20 etamine 20 phetamine [facility] mg tablet mg tablet 20 mg al TAKE 2 TAKE 2 tablet Health TABLETS [facility] MOUTH EVERY TABLETS BY h MORNING AND MORNING AND MOUTH Program 1 TABLET 1 TABLET EVERY EVERY EVERY MORNING AFTERNOON AFTERNOON AND 1 TABLET EVERY AFTERNOON pantoprazol pantoprazol No pantoprazo [place] e 40 mg e 40 mg le 40 mg da tablet,go tablet,go tablet,del [facility] yed release yed release ayed a l TAKE ONE TAKE ONE release Heal th (1) (1) TAKE ONE Outreac TABLET(S) TABLET(S) (1) h BY MOUTH BY MOUTH TABLET(S) Pr ogram DAILY. DAILY. BY MOUTH DAILY. sodium,pota sodium,pota No sodium,pot [place] ssium,mag ssium,mag assium,mag da sulfates sulfates sulfates Epi scop 17.5 17.5 17.5 al gram-3.13 gram-3.13 gram-3.13 Health gram-1.6 gram-1.6 gram-1.6 Out reac gram oral gram oral gram oral h soln TAKE soln TAKE soln TAKE Program DIRECTED. DIRECTED. DIRECTED. Loestrin Fe Loestrin Fe No 1 Q1D [...] by oral by oral route. route. route. Focalin XR Focalin XR No 2capsul Q1D Focalin XR [place] 20 mg 20 mg e(s) 20 mg da capsule,ext capsule,ext capsule,ex [facility] ended ended tended al release release release Health Take 2 Take 2 Take 2 Outreac capsules capsules capsules h every day every day every day Program by oral by oral by oral route with route with route with meals for meals for meals for 30 days. 30 days. 30 days. Lithobid Lithobid No 2 Q1D Lithobid [place] 300 mg 300 mg 300 mg da tablet,exte tablet,exte tablet,ext [facility] nded nded ended al release release release Health Take 2 Take 2 Take 2 [facility] tablets tablets tablets h every day every day every day Program by oral by oral by oral route at route at route at bedtime for bedtime for bedtime 30 days. 30 days. for 30 days. Focalin XR Focalin XR No 2capsul Q1D Focalin XR [place] 20 mg 20 mg e(s) 20 mg da capsule,ext capsule,ext capsule,ex [facility] ended ended tended al release release release Health Take 2 Take 2 Take 2 Outreac capsules capsules capsules h every day every day every day Program by oral by oral by oral route with route with route with meals for meals for meals for 30 days. 30 days. 30 days. Lexapro 10 Lexapro 10 No 1 Q1D Lexapro 10 [place] mg tablet mg tablet mg tablet da Take 1 Take 1 Take 1 [facility] tablet tablet tablet al every day every day every day Health by oral by oral by oral Outrea c route with route with route with h meals for meals for meals for Program 30 days. 30 days. 30 days. Lithobid Lithobid No 2 Q1D Lithobid [place] 300 mg 300 mg 300 mg da tablet,exte tablet,exte tablet,ext [facility] nded nded ended al release release release Health Take 2 Take 2 Take 2 Outreac tablets tablets tablets h every day every day every day Program by oral by oral by oral route at route at route at bedtime for bedtime for bedtime 30 days. 30 days. for 30 days. Nexplanon Nexplanon Yes Na Harris as Co mmon directed [facility] Nexplanon Nexplanon No Nexplanon 68 MG 68 MG 68 MG Nexplanon Nexplanon No Nexplanon 68 MG 68 MG 68 MG Nexplanon Nexplanon No 68 MG 68 MG Nexplanon Nexplanon No 68 MG 68 MG Nexplanon Nexplanon No Nexplanon 68 MG 68 MG 68 MG Nexplanon Nexplanon No Nexplanon 68 MG 68 MG 68 MG Nexplanon Nexplanon No Nexplanon 68 MG 68 MG 68 MG Nexplanon Nexplanon No Nexplanon 68 MG 68 MG 68 MG Nexplanon Nexplanon No Nexplanon 68 MG 68 MG 68 MG Nexplanon Nexplanon No Nexplanon 68 MG 68 MG 68 MG Nexplanon Nexplanon No Nexplanon 68 MG 68 MG 68 MG Nexplanon Nexplanon No Nexplanon 68 MG 68 MG 68 MG Nexplanon Nexplanon No Nexplanon 68 MG 68 MG 68 MG Nexplanon Nexplanon No Nexplanon 68 MG 68 MG 68 MG Nexplanon Nexplanon No Nexplanon 68 MG 68 MG 68 MG Nexplanon Nexplanon No Nexplanon 68 MG 68 MG 68 MG acetaminoph acetaminoph No acetaminop [place] en 300 en 300 hen 300 da mg-codeine mg-codeine mg-codeine Medical 30 mg 30 mg 30 mg Group tablet TAKE tablet TAKE tablet 1 TABLET BY 1 TABLET BY TAKE 1 MOUTH EVERY MOUTH EVERY TABLET BY 6 HOURS 6 HOURS MOUTH NEEDED FOR NEEDED FOR EVERY 6 PAIN. DO PAIN. DO HOURS NOT COMBINE NOT COMBINE NEEDED FOR WITH OTHER WITH OTHER PAIN. DO PRODUCTS PRODUCTS NOT THAT THAT COMBINE CONTAIN CONTAIN WITH OTHER TYLENOL TYLENOL PRODUCTS ACETAMINOPH ACETAMINOPH THAT EN EN CONTAIN TYLENOL ACETAMINOP HEN butalbital- butalbital- No butalbital [place] acetaminoph acetaminoph -acetamino da en-caffeine en-caffeine phen-caffe Medical 50 mg-300 50 mg-300 ine 50 Elvin up mg-40 mg mg-40 mg mg-300 capsule capsule mg-40 mg TAKE 1 TAKE 1 capsule CAPSULE BY CAPSULE BY TAKE 1 MOUTH EVERY MOUTH EVERY CAPSULE BY 6 TO 8 6 TO 8 MOUTH HOURS HOURS EVERY 6 TO NEEDED. NEEDED. 8 HOURS NEEDED. cetirizine cetirizine No cetirizine [place] 10 mg 10 mg 10 mg da tablet TAKE tablet TAKE tablet Medical ONE TABLET ONE TABLET TAKE ONE Group BY MOUTH BY MOUTH TABLET BY EVERY EVERY MOUTH MORNING MORNING EVERY MORNING dextroamphe dextroamphe No dextroamph [place] tamine-amph tamine-amph etamine-am da etamine 20 etamine 20 phetamine Medical mg tablet mg tablet 20 mg Grou p TAKE 2 TAKE 2 tablet TABLETS BY TABLETS BY TAKE 2 MOUTH IN MOUTH IN TABLETS BY THE MORNING THE MORNING MOUTH IN AND 1 AND 1 THE TABLET IN TABLET IN MORNING THE THE AND 1 AFTERNOON AFTERNOON TABLET IN THE AFTERNOON folic acid folic acid No 1 Q1D folic acid [place] 1 mg tablet 1 mg tablet 1 mg d a Take 1 Take 1 tablet Medical tablet tablet Take 1 Group every day every day tablet by oral by oral every day route. route. by oral route. ibuprofen ibuprofen No ibuprofen [place] 800 mg 800 mg 800 mg da tablet TAKE tablet TAKE tablet Medical 1 TABLET BY 1 TABLET BY TAKE 1 Group MOUTH EVERY MOUTH EVERY TABLET BY 6 HOURS 6 HOURS MOUTH NEEDED FOR NEEDED FOR EVERY 6 LACERATION LACERATION HOURS NEEDED FOR LACERATION metoclopram metoclopram No metoclopra [place] jayme 10 mg jayme 10 mg mide 10 mg da tablet TAKE tablet TAKE tablet Medical 1 TABLET BY 1 TABLET BY TAKE 1 Group MOUTH FOUR MOUTH FOUR TABLET BY TIMES DAILY TIMES DAILY MOUTH FOUR FOR 7 DAYS FOR 7 DAYS TIMES NEEDED NEEDED DAILY FOR 7 DAYS NEEDED metronidazo metronidazo No 1 BID metronidaz [place] le 500 mg le 500 mg ole 500 mg da tablet Take tablet Take tablet Medical 1 tablet 1 tablet Take 1 Group twice a day twice a day tablet by oral by oral twice a route for 7 route for 7 day by days. days. oral route for 7 days. Mirena 20 Mirena 20 No 1device Mirena 20 [place] mcg/24 mcg/24 (s) mcg/24 da hours (7 hours (7 hours (7 Med ical yrs) 52 mg yrs) 52 mg yrs) 52 mg Group intrauterin intrauterin intrauteri e device e device ne device Take 1 Take 1 Take 1 device by device by device by intrauterin intrauterin intrauteri e route. e route. ne route. norethindro norethindro No norethindr [place] ne ne one da (contracept (contracept (contracep Medical jannie) 0.35 jannie) 0.35 tive) 0.35 Group mg tablet mg tablet mg tablet TAKE 1 TAKE 1 TAKE 1 TABLET BY TABLET BY TABLET BY MOUTH EVERY MOUTH EVERY MOUTH DAY DAY EVERY DAY omeprazole omeprazole No 1capsul Q1D omeprazole [place] 40 mg 40 mg e(s) 40 mg da capsule,del capsule,del capsule,de Medical ayed ayed layed Group release release release Take 1 Take 1 Take 1 capsule capsule capsule every day every day every day by oral by oral by oral route. route. route. acetaminoph acetaminoph No acetaminop [place] en 300 en 300 hen 300 da mg-codeine mg-codeine mg-codeine Medical 30 mg 30 mg 30 mg Group tablet TAKE tablet TAKE tablet 1 TABLET BY 1 TABLET BY TAKE 1 MOUTH EVERY MOUTH EVERY TABLET BY 6 HOURS 6 HOURS MOUTH NEEDED FOR NEEDED FOR EVERY 6 PAIN. DO PAIN. DO HOURS NOT COMBINE NOT COMBINE NEEDED FOR WITH OTHER WITH OTHER PAIN. DO PRODUCTS PRODUCTS NOT THAT THAT COMBINE CONTAIN CONTAIN WITH OTHER TYLENOL TYLENOL PRODUCTS ACETAMINOPH ACETAMINOPH THAT EN EN CONTAIN TYLENOL ACETAMINOP HEN butalbital- butalbital- No butalbital [place] acetaminoph acetaminoph -acetamino da en-caffeine en-caffeine phen-caffe Medical 50 mg-300 50 mg-300 ine 50 Elvin up mg-40 mg mg-40 mg mg-300 capsule capsule mg-40 mg TAKE 1 TAKE 1 capsule CAPSULE BY CAPSULE BY TAKE 1 MOUTH EVERY MOUTH EVERY CAPSULE BY 6 TO 8 6 TO 8 MOUTH HOURS HOURS EVERY 6 TO NEEDED. NEEDED. 8 HOURS NEEDED. cetirizine cetirizine No cetirizine [place] 10 mg 10 mg 10 mg da tablet TAKE tablet TAKE tablet Medical ONE TABLET ONE TABLET TAKE ONE Group BY MOUTH BY MOUTH TABLET BY EVERY EVERY MOUTH MORNING MORNING EVERY MORNING dextroamphe dextroamphe No dextroamph [place] tamine-amph tamine-amph etamine-am da etamine 20 etamine 20 phetamine Medical mg tablet mg tablet 20 mg Grou p TAKE 2 TAKE 2 tablet TABLETS BY TABLETS BY TAKE 2 MOUTH EVERY MOUTH EVERY TABLETS BY MORNING AND MORNING AND MOUTH 1 TABLET 1 TABLET EVERY EVERY EVERY MORNING EVENING EVENING AND 1 TABLET EVERY EVENING folic acid folic acid No 1 Q1D folic acid [place] 1 mg tablet 1 mg tablet 1 mg d a Take 1 Take 1 tablet Medical tablet tablet Take 1 Group every day every day tablet by oral by oral every day route. route. by oral route. ibuprofen ibuprofen No ibuprofen [place] 800 mg 800 mg 800 mg da tablet TAKE tablet TAKE tablet Medical 1 TABLET BY 1 TABLET BY TAKE 1 Group MOUTH EVERY MOUTH EVERY TABLET BY 6 HOURS 6 HOURS MOUTH NEEDED FOR NEEDED FOR EVERY 6 LACERATION LACERATION HOURS NEEDED FOR LACERATION metoclopram metoclopram No metoclopra [place] jayme 10 mg jayme 10 mg mide 10 mg da tablet TAKE tablet TAKE tablet Medical 1 TABLET BY 1 TABLET BY TAKE 1 Group MOUTH FOUR MOUTH FOUR TABLET BY TIMES DAILY TIMES DAILY MOUTH FOUR FOR 7 DAYS FOR 7 DAYS TIMES NEEDED NEEDED DAILY FOR 7 DAYS NEEDED metronidazo metronidazo No metronidaz [place] le 500 mg le 500 mg ole 500 mg da tablet TAKE tablet TAKE tablet Medical 1 TABLET BY 1 TABLET BY TAKE 1 Group MOUTH TWICE MOUTH TWICE TABLET BY DAILY FOR 7 DAILY FOR 7 MOUTH DAYS DAYS TWICE DAILY FOR 7 DAYS Mirena 20 Mirena 20 No 1device Mirena 20 [place] mcg/24 mcg/24 (s) mcg/24 da hours (8 hours (8 hours (8 Med ical yrs) 52 mg yrs) 52 mg yrs) 52 mg Group intrauterin intrauterin intrauteri e device e device ne device Take 1 Take 1 Take 1 device by device by device by intrauterin intrauterin intrauteri e route. e route. ne route. norethindro norethindro No norethindr [place] ne ne one da (contracept (contracept (contracep Medical jannie) 0.35 jannie) 0.35 tive) 0.35 Group mg tablet mg tablet mg tablet TAKE 1 TAKE 1 TAKE 1 TABLET BY TABLET BY TABLET BY MOUTH EVERY MOUTH EVERY MOUTH DAY DAY EVERY DAY omeprazole omeprazole No 1capsul Q1D omeprazole [place] 40 mg 40 mg e(s) 40 mg da capsule,del capsule,del capsule,de Medical ayed ayed layed Group release release release Take 1 Take 1 Take 1 capsule capsule capsule every day every day every day by oral by oral by oral route. route. route. butalbital- butalbital- No butalbital [place] acetaminoph acetaminoph -acetamino da en-caffeine en-caffeine phen-caffe Medical 50 mg-300 50 mg-300 ine 50 Elvin up mg-40 mg mg-40 mg mg-300 capsule capsule mg-40 mg TAKE 1 TAKE 1 capsule CAPSULE BY CAPSULE BY TAKE 1 MOUTH EVERY MOUTH EVERY CAPSULE BY 6 TO 8 6 TO 8 MOUTH HOURS HOURS EVERY 6 TO NEEDED. NEEDED. 8 HOURS NEEDED. cetirizine cetirizine No cetirizine [place] 10 mg 10 mg 10 mg da tablet TAKE tablet TAKE tablet Medical ONE TABLET ONE TABLET TAKE ONE Group BY MOUTH BY MOUTH TABLET BY EVERY EVERY MOUTH MORNING MORNING EVERY MORNING dextroamphe dextroamphe No dextroamph [place] tamine-amph tamine-amph etamine-am da etamine 20 etamine 20 phetamine Medical mg tablet mg tablet 20 mg Grou p TAKE 2 TAKE 2 tablet TABLETS BY TABLETS BY TAKE 2 MOUTH EVERY MOUTH EVERY TABLETS BY MORNING AND MORNING AND MOUTH 1 IN THE 1 IN THE EVERY AFTERNOON AFTERNOON MORNING NEEDED NEEDED AND 1 IN THE AFTERNOON NEEDED Mirena 20 Mirena 20 No 1device Mirena 20 [place] mcg/24 mcg/24 (s) mcg/24 da hours (8 hours (8 hours (8 Med ical yrs) 52 mg yrs) 52 mg yrs) 52 mg Group intrauterin intrauterin intrauteri e device e device ne device Take 1 Take 1 Take 1 device by device by device by intrauterin intrauterin intrauteri e route. e route. ne route. Immunizations Ordered Immunization Filled Immunization Date Status Commen ts Source Name Name Tdap - ML Tdap - ML 2021-12-02 Completed [place] [facility] - ML Tdap - ML 2021-12-02 Completed [place] [facility] Tdap - ML Tdap - ML 2021-12-02 Completed [place] 00:00:00 [facility] Tdap - ML Tdap - ML 2021-12-02 Completed [place] 00:00:00 [facility] T[facility]ap- (Boostrix, 2021-12-02 Completed Mariah Farrar Adachrissy) 00:00:00 External COVID-19, mRNA, COVID-19, mRNA, 2021-06-07 Completed [place] trace LNP-S, PF, 100 LNP-S, PF, 100 00:00:00 [facility] mcg/0.5 mL dose mcg/0.5 mL dose Outr each Program (Moderna) - ML (Moderna) - ML COVID-19, mRNA, COVID-19, mRNA, 2021-06-07 Completed [place] trace LNP-S, PF, 100 LNP-S, PF, 100 00:00:00 [facility] mcg/0.5 mL dose mcg/0.5 mL dose Outr each Program (Moderna) - ML (Moderna) - ML COVID-19, mRNA, COVID-19, mRNA, 2021-06-07 Completed [place] trace LNP-S, PF, 100 LNP-S, PF, 100 00:00:00 [facility] mcg/0.5 mL dose mcg/0.5 mL dose Outr each Program (Moderna) - ML (Moderna) - ML COVID-19, mRNA, COVID-19, mRNA, 2021-06-07 Completed [place] trace LNP-S, PF, 100 LNP-S, PF, 100 00:00:00 [facility] mcg/0.5 mL dose mcg/0.5 mL dose Outr each Program (Moderna) - ML (Moderna) - ML COVID-19, mRNA, COVID-19, mRNA, 2021-05-14 Completed [place] trace LNP-S, PF, 100 LNP-S, PF, 100 00:00:00 [facility] mcg/0.5 mL dose mcg/0.5 mL dose Outr each Program (Moderna) - ML (Moderna) - ML COVID-19, mRNA, COVID-19, mRNA, 2021-05-14 Completed [place] trace LNP-S, PF, 100 LNP-S, PF, 100 00:00:00 [facility] mcg/0.5 mL dose mcg/0.5 mL dose Outr each Program (Moderna) - ML (Moderna) - ML COVID-19, mRNA, COVID-19, mRNA, 2021-05-14 Completed [place] [facility] LNP-S, PF, 100 LNP-S, PF, 100 00:00:00 [facility] mcg/0.5 mL dose mcg/0.5 mL dose Outr each Program (Moderna) - ML (Moderna) - ML COVID-19, mRNA, COVID-19, mRNA, 2021-05-14 Completed [place] trace LNP-S, PF, 100 LNP-S, PF, 100 00:00:00 [facility] mcg/0.5 mL dose mcg/0.5 mL dose Outr each Program (Moderna) - ML (Moderna) - ML Vital Signs Vital Name Observation Time Observation Value Comments Source Height 2023-04-16 00:00:00 60 [[facility]_i] [facility] BMI (Body Mass 2023-04-16 00:00:00 27.1 kg/m2 [facility] cut in worker Index) [facility] BP Systolic 2023-04-16 00:00:00 111 mm[Hg] [facility] Body Weight 2023-04-16 00:00:00 139 [lb_av] [place] [facility] BP Diastolic 2023-04-16 00:00:00 82 mm[Hg] [facility] BP Diastolic 2023-03-19 00:00:00 83 mm[Hg] [place] [facility] Height 2023-03-19 00:00:00 60 [in_i] [place] [facility] BMI (Body Mass 2023-03-19 00:00:00 27.1 kg/m2 [facility] cut in worker Index) [facility] BP Systolic 2023-03-19 00:00:00 130 mm[Hg] [place] [facility] Body Weight 2023-03-19 00:00:00 139 [lb_av] [place] [facility] Height 2023-02-19 00:00:00 60 [in_i] [place] [facility] BMI (Body Mass 2023-02-19 00:00:00 26.6 kg/m2 [facility] cut in worker Index) [facility] Body Weight 2023-02-19 00:00:00 136 [lb_av] [place] [facility] Systolic blood 2023-01-27 15:56:00 116 mm[Hg] Mariah Orr - pressure External Diastolic blood 2023-01-27 15:56:00 71 mm[Hg] Korey Orr - pressure External Heart rate 2023-01-27 15:56:00 75 /min Mariah villalobos - External Body temperature 2023-01-27 15:56:00 36.39 Chrissy Cindy camacho Seybold - External Respiratory rate 2023-01-27 15:56:00 16 /min Cindy Orr - External Body height 2023-01-27 15:56:00 152.4 cm Mariah villalobos - External Body weight 2023-01-27 15:56:00 83.008 kg Mariah villalobos - External BMI 2023-01-27 15:56:00 35.74 kg/m2 Mariah villalobos - External Oxygen saturation in 2023-01-27 15:56:00 97 /min Mariah Orr - Arterial blood by External Pulse oximetry BP Diastolic 2023-01-22 00:00:00 87 mm[Hg] [place] [facility] Height 2023-01-22 00:00:00 60 [in_i] [place] [facility] BMI (Body Mass 2023-01-22 00:00:00 26.4 kg/m2 [facility] Index) [facility] BP Systolic 2023-01-22 00:00:00 128 mm[Hg] [place] [facility] Body Weight 2023-01-22 00:00:00 135 [lb_av] [place] [facility] BP Diastolic 2022-09-15 00:00:00 71 mm[Hg] [facility] Height 2022-09-15 00:00:00 61 [in_i] [facility] BMI (Body Mass 2022-09-15 00:00:00 22.5 kg/m2 [facility] Medical Index) Group BP Systolic 2022-09-15 00:00:00 107 mm[Hg] [facility] Body Weight 2022-09-15 00:00:00 119 [lb_av] [facility] BP Diastolic 2022-03-11 00:00:00 84 mm[Hg] [facility] Height 2022-03-11 00:00:00 61 [in_i] [facility] BMI (Body Mass 2022-03-11 00:00:00 21.6 kg/m2 [facility] Medical Index) Group BP Systolic 2022-03-11 00:00:00 125 mm[Hg] [facility] Body Weight 2022-03-11 00:00:00 114.2 [lb_av] [facility] BP Diastolic 2022-01-29 00:00:00 87 mm[Hg] [facility] Height 2022-01-29 00:00:00 61 [in_i] [facility] BP Systolic 2022-01-29 00:00:00 121 mm[Hg] [facility] BP Diastolic 2022-01-01 00:00:00 88 mm[Hg] [facility] Height 2022-01-01 00:00:00 61 [in_i] [facility] BMI (Body Mass 2022-01-01 00:00:00 21.7 kg/m2 [facility] Medical Index) Group BP Systolic 2022-01-01 00:00:00 130 mm[Hg] [facility] Body Weight 2022-01-01 00:00:00 115.1 [lb_av] [facility] height 2021-12-17 16:20:00 60.0 [in_i] [facility] weight 2021-12-17 16:20:00 125 [lb_av] [facility] bmi 2021-12-17 16:20:00 24.41 kg/m2 [facility] BP Diastolic 2021-11-25 00:00:00 73 mm[Hg] [facility] Height 2021-11-25 00:00:00 61 [in_i] [facility] BMI (Body Mass 2021-11-25 00:00:00 25.1 kg/m2 [facility] Medical Index) Group BP Systolic 2021-11-25 00:00:00 114 mm[Hg] [facility] Body Weight 2021-11-25 00:00:00 132.8 [lb_av] [facility] BP Diastolic 2021-11-21 00:00:00 78 mm[Hg] [facility] Height 2021-11-21 00:00:00 61 [in_i] [facility] BMI (Body Mass 2021-11-21 00:00:00 24.5 kg/m2 [facility] Medical Index) Group BP Systolic 2021-11-21 00:00:00 119 mm[Hg] [facility] Body Weight 2021-11-21 00:00:00 129.9 [lb_av] [facility] BP Diastolic 2021-11-04 00:00:00 83 mm[Hg] [facility] Height 2021-11-04 00:00:00 61 [in_i] [facility] BMI (Body Mass 2021-11-04 00:00:00 24 kg/m2 [facility] Medical Index) Group BP Systolic 2021-11-04 00:00:00 124 mm[Hg] [facility] Body Weight 2021-11-04 00:00:00 127 [lb_av] [facility] height 2021-10-16 08:00:00 60.0 [in_i] [facility] weight 2021-10-16 08:00:00 126 [lb_av] [facility] bmi 2021-10-16 08:00:00 24.61 kg/m2 [facility] BP Diastolic 2021-10-14 00:00:00 83 mm[Hg] [facility] Height 2021-10-14 00:00:00 61 [in_i] [facility] BMI (Body Mass 2021-10-14 00:00:00 23.8 kg/m2 [facility] Medical Index) Group BP Systolic 2021-10-14 00:00:00 133 mm[Hg] [facility] Body Weight 2021-10-14 00:00:00 126 [lb_av] [facility] BP Diastolic 2021-09-13 00:00:00 74 mm[Hg] [facility] Height 2021-09-13 00:00:00 61 [in_i] [facility] BMI (Body Mass 2021-09-13 00:00:00 24.1 kg/m2 [facility] Medical Index) Group BP Systolic 2021-09-13 00:00:00 112 mm[Hg] [facility] Body Weight 2021-09-13 00:00:00 127.5 [lb_av] [facility] BP Diastolic 2021-07-08 00:00:00 86 mm[Hg] [facility] Height 2021-07-08 00:00:00 61 [in_i] [facility] BMI (Body Mass 2021-07-08 00:00:00 22.3 kg/m2 [facility] [facility] in worker Medical Index) Group BP Systolic 2021-07-08 00:00:00 133 mm[Hg] [facility] Body Weight 2021-07-08 00:00:00 118 [lb_av] [facility] BP Diastolic 2021-05-16 00:00:00 87 mm[Hg] [facility] Height 2021-05-16 00:00:00 61 [in_i] [facility] BMI (Body Mass 2021-05-16 00:00:00 21.5 kg/m2 [facility] cut in worker Medical Index) Group BP Systolic 2021-05-16 00:00:00 136 mm[Hg] [facility] Body Weight 2021-05-16 00:00:00 114 [lb_av] [facility] Body Weight 2021-02-18 00:00:00 117 [lb_av] [facility] Procedures Procedure Date / Time Performing Clinician Source Performed US, pelvis 2022-01-29 00:00[facility] 2021-11-25 00:00:00 [facility] Group US, obstetric, limited 2021-11-04 00:00:00 [facility] ord Medical [facility] ULTRASOUND REPEAT 2021-10-14 00:00:00 [facility] ULTRASOUND, 2021-07-08 00:00:00 [facility] UTERUS REAL TIME WITH Group IMAGE DOC, AND MATERNAL EVAL PLUS DETAILED ANATOMIC EXAMINATION, TRANSABDOMINAL APPROACH; SINGLE OR FIRST GESTATION US, obstetric, limited 2021-07-08 00:00:00 [facility] ULTRASOUND, 2021-05-16 00:00:00 [facility] UTERUS REAL TIME WITH Group IMAGE DOCUMENTAITON, TRANSVAGINAL Plan of Care Planned Activity Planned Date Details Comments Source Diagnostic Test 2023-03-19 unlisted lab [code [place] [facility] worker [facility] Pending 00:00:00 = unlisted lab] Health Out[facility] Program Diagnostic Test 2022-09-15 CT + NG + TV, DNA, [place] cut in worker Medical Pending 00:00:00 urine/swab [code = Group CT + NG + TV, DNA, urine/swab] Future Appointment 2023-06-16 Dav Ochoa, [address] [facility] 00:00:00 Luis Ko , [place] Program [id number] Instructions Stephanie Medic sam Group Encounters Start End Encounter Admission Attending Care Care Encounter Source Date/Time Date/Time Type Type Clinicians Facility Department ID 2022-12-18 Outpatient Ohara, STLMLC STLMLC [id number] Common 08:25:[address]isha [id number] [facility] 2022-11-28 Outpatient Ohara, STLMLC STLMLC [id number] Common 13:52:[address] Manisha [id number] [facility] 2022-06-26 Outpatient Harris, Na STLMLC STLMLC [id number] 2 Common 14:11:[address] [facility] 2022-04-18 Outpatient Hraris, Na STLMLC STLMLC [id number] 2 Common 11:30:[address] [facility] 2021-10-22 Outpatient Harris, Na STLMLC STLMLC [id number] 2 Common 15:58:[address] [facility] 2021-10-18 Outpatient Harris, Na STLMLC STLMLC [id number] 2 Common 14:21:[address] [facility] 2021-10-14 Outpatient Harris, Na STLMLC STLMLC [id number] 2 Common 08:24:[address] [facility] 2021-10-02 Outpatient Harris, Na STLMLC STLMLC [id number] 2 Common 14:13:[address] [facility] 2021-10-02 Outpatient Harris, Na STLMLC STLMLC [id number] 2 Common 13:15:[id number] [facility] 2021-10-02 Outpatient Harris, Na STLMLC STLMLC [id number] 2 Common 12:16:[id number] [facility] 2021-10-02 Outpatient Harris, Na STLMLC STLMLC [id number] 2 Common 12:08:[id number] [facility] 2021-10-02 Outpatient Harris, Na STLMLC STLMLC [id number] 2 Common 11:58:[id number] [facility] 2021-10-02 Outpatient Harris, Na STLMLC STLMLC [id number] 2 Common 11:57:[id number] [facility] 2021-10-02 Outpatient Harris, Na STLMLC STLMLC [id number] 2 Common 11:40:[id number] [facility] 2021-10-02 Outpatient Harris, Na STLMLC STLMLC [id number] 2 Common 11:28:[id number] [facility] 2021-10-02 Outpatient Harris, Na STLMLC STLMLC [id number] 2 Common 11:27:[id number] [facility] 2021-10-02 Outpatient Harris, Na STLMLC STLMLC [id number] 2 Common 11:18:[id number] [facility] 2021-10-02 Outpatient Harris, Na STLMLC STLMLC [id number] 2 Common 11:18:[id number] [facility] 2023-04-16 2023-04-16 Dav KNOWLES [place] - [id number] [place] 00:00:00 00:00:00 MD Don: Stephanie carr 1700 [facility] [address] [facility] , Ph. Program [phone]) 245--20072023-04-08 2023-04-08 Outpatient PATEL_EMY [facility] 938 [place] 00:00:00 00:00:00 H 0802 [facility] 2023-04-08 2023-04-08 Outpatient PATEL_EMY [facility] 938 [place] 00:00:00 00:00:00 H 0810 [facility] 2023-03-19 2023-03-19 Dav KNOWLES [place] - [id number] [place] 00:00:00 00:00:00 MD Don: Stephanie carr 1700 [facility] [address] [facility] , Ph. Program [phone]) -20072023-03-08 2023-03-08 Outpatient PATEL_EMY [facility] 938 [place] 00:00:00 00:00:00 H 0713 [facility] 2023-03-08 2023-03-08 Outpatient PATEL_NILEThee [facility] 938 [place] 00:00:00 00:00:00 H 0717 [facility] 2023-02-25 2023-02-25 Outpatient MARIAH VERAS [id number] Mariah 13:45:00 13:45:00 VIV castañeda 2023-02-19 2023-02-19 Outpatient PATEL_EMY [facility] 938 [place] 00:00:00 00:00:00 H 0615 [facility] 2023-02-19 2023-02-19 Outpatient PATEL_EMY [facility] [id number] [place] 00:00:00 00:00:00 H 0618 [facility] 2023-02-19 2023-02-19 Dav Caruso [facility] - [id number] [place] 00:00:00 00:00:00 MD Don: Stephanie carr 1700 [facility] HOP - [address] [address] h , Ph. Program (702) 2023-01-28 2023-01-28 Outpatient PATEL_EMY [facility] 938 [place] 00:00:00 00:00:00 H 0601 [facility] 2023-01-27 2023-01-27 Outpatient LAB90 MARIAH AC [id number] Mariah 11:50:00 11:50:00 Jarrod castañeda 2023-01-27 2023-01-27 Outpatient RITO MARIAH AC [id number] Mariah 11:00:00 11:00:00 VIV castañeda 2023-01-22 2023-01-22 Outpatient PATEL_EVELIOS MEHOP [facility] 938 [place] 00:00:00 00:00:00 H 0518 [facility] 2023-01-22 2023-01-22 Outpatient PATEL_EVELIOS MEHOP [facility] 938 [place] 00:00:00 00:00:00 H 0519 [facility] 2023-01-22 2023-01-22 Dav Caruso [facility] - [id number] [place] 00:00:00 00:00:00 MD Don: Stephanie carr 1700 [facility] [address] [facility] , Ph. Program [phone]) [id number]--20072023-01-01 2023-01-01 Outpatient LISTER_DANIAI MEHOP [facility] 938 [place] 00:00:00 00:00:00 SSA 0427 [facility] 2022-12-11 2022-12-11 Outpatient G_Pappas MMG MMG 2022 [place] 00:00:00 00:00:00 0407 [facility] 2022-11-06 2022-11-06 Outpatient G_Pappas MMG MMG [id number] [place] 00:00:00 00:00:00 0302 [facility] 2022-10-31 2022-10-31 Outpatient G_Pappas MMG MMG [id number] [place] 00:00:00 00:00:00 0228 [facility] 2022-10-02 2022-10-02 Outpatient G_Pappas MMG MMG [id number] [place] 00:00:00 00:00:00 0126 [facility] 2022-09-15 2022-09-15 Outpatient G_Pappas MMG MMG 2022 [place] 00:00:00 00:00:00 0109 [facility] 2022-09-15 2022-09-15 Lachelle MMG [place] - [id number] [place] 00:00:00 00:00:00 Melvin Clemente Medical Medica henrique HOPSON: [address] [facility] [address], [place] [address] , Ph. [phone] 2022-08-15 2022-08-15 [facility] [id number] Co mmon 00:00:00 00:00:[address] [facility] 2022-08-13 2022-08-13 Outpatient G_Pappas MMG MMG 2021 [place] 00:00:00 00:00:00 1207 Medical [facility] 2022-07-09 2022-07-09 Outpatient G_Pappas MMG MMG 2021 [place] 00:00:00 00:00:00 1102 Medical Group 2022-06-04 2022-06-04 Outpatient G_Pappas MMG MMG 2021 [place] 00:00:00 00:00:00 0928 Medical Group 2022-04-30 2022-04-30 Outpatient G_Pappas MMG MMG 2021 [place] 00:00:00 00:00:00 0824 Medical [facility] 2022-04-22 2022-04-22 [id number] Co mmon 00:00:00 00:00:00 VISIT EST Spir it PT LEVEL 3 - [facility] 2022-04-01 2022-04-01 [facility]TEL[facility] [id number] Co mmon 00:00:00 00:00:[address] [facility] 2022-03-12 2022-03-12 Outpatient G_Pappas MMG MMG [id number] [place] 04:18:00 04:18:00 0712 Medical [facility] 2022-03-11 2022-03-11 Outpatient G_Pappas MMG MMG 2021 [place] 09:58:00 09:58:00 0705 [facility] 2022-03-11 2022-03-11 Penelope MMG [place] - [id number] M at[place] 00:00:00 00:00:00 Discovery susan Borjas [facility]: Medical Medical [address] [place] [address] O[address], [place] [address] , Ph. [phone] 2022-03-04 2022-03-04 Outpatient G_Pappas MMG MMG 2021 [place] 01:45:00 01:45:00 0628 [facility] 2022-03-04 2022-03-04 Outpatient G_Pappas MMG MMG 2021 [place] 01:45:00 01:45:00 0701 [facility] 2022-02-11 2022-02-11 (TEL[facility] [id number] Co mmon 00:00:00 00:00:[address] [facility] 2022-01-29 2022-01-29 Outpatient G_Pappas MMG MMG 2021 [place] 04:38:00 04:38:00 0525 [facility] 2022-01-29 2022-01-29 Outpatient G_Pappas MMG MMG 2021 [place] 04:38:00 04:38:00 0526 [facility] 2022-01-29 2022-01-29 Outpatient G_Pappas MMG MMG 2021 [place] 04:38:00 04:38:00 0530 [facility] 2022-01-29 2022-01-29 Outpatient G_Pappas MMG MMG 2021 [place] 04:38:00 04:38:00 0612 [facility] 2022-01-29 2022-01-29 Lachelle MMG [place] - [id number] M at[place]or 00:00:00 00:00:00 Clayton Frazier Medica henrique HOPSON: [address] [place] [address] [address], [place] [address] , Ph. [phone] 2022-01-25 2022-01-25 Outpatient G_Pappas MMG MMG 2021 [place] 12:34:00 12:34:00 0524 Medical Group 2022-01-24 2022-01-24 Outpatient G_Pappas MMG MMG 2021 [place] 06:47:00 06:47:00 0520 Medical [facility] 2022-01-14 2022-01-14 [facility]EL[facility] [id number] Co mmon 00:00:00 00:00:00 Spirit - [facility] 2022-01-10 2022-01-10 Outpatient G_Pappas MMG MM 2021 [place] 11:09:00 11:09:00 0506 Medical [facility] 2022-01-01 2022-01-01 Outpatient G_Pappas MMG MMG 2021 [place] 02:45:00 02:45:00 0427 Medical [facility] 2022-01-01 2022-01-01 [facility] [place] - [id number] M atagor 00:00:00 00:00:00 Discovery susan Borjas [facility]: [address], [place] [address] , Ph. [phone] 2021-12-19 2021-12-19 Outpatient G_Pappas MMG MMG 2021 [place] 05:03:00 05:03:00 0414 Medical Group 2021-12-17 2021-12-17 [facility] [id number] Co mmon 00:00:00 00:00:00 VISIT [facility] PT - CHI LEVEL 2 [facility] 2021-12-01 2021-12-02 Inpatient ER JOHNNY, [facility] MOB [id number] [place] 18:47:00 18:25:00 LACHELLE -[id number] [facility] 2021-11-25 2021-11-25 Outpatient G_Pappas MMG MMG 2021 [place] 12:11:00 12:11:00 0321 [facility] 2021-11-25 2021-11-25 Lachelle MMG [place] - [id number] M atagor 00:00:00 00:00:00 Melvin Clemente Medical Medica henrique HOPSON: [address] [place] [address] , Ph. [phone] 2021-11-21 2021-11-21 Outpatient G_Pappas MMG MMG 2021 [place] 12:10:00 12:10:00 0317 [facility] 2021-11-21 2021-11-21 Penelope MMG [place] - [id number] M atagor 00:00:00 00:00:00 Discovery susan Borjas [facility]-: [address] [address] , Ph. [phone] 2021-11-06 2021-11-06 (TEL) STLMLC STLMLC [id number] Co mmon 00:00:00 00:00:[address] [facility] 2021-11-04 2021-11-04 Outpatient G_Pappas MMG MMG 2021 [place] 11:19:00 11:19:00 0228 [facility] 2021-11-04 2021-11-04 Lachelle MM [place] - [id number] M at[place]or 00:00:00 00:00:00 Clayton Frazier Mediclilly duenas MD: [address] [place] [address] , Ph. [phone] 2021-10-16 2021-10-16 OFFICE STLMLC STLMLC [id number] Co mmon 00:00:00 00:00:00 VISIT EST Spir it PT LEVEL 3 - [facility] 2021-10-15 2021-10-15 (TEL) STLMLC STLMLC [id number] Co mmon 00:00:00 00:00:00 [facility] 2021-10-14 2021-10-14 Outpatient G_Pappas MMG MMG [id number] [place] 10:46:00 10:46:00 0207 [facility] 2021-10-14 2021-10-14 Outpatient JULIANNA TURNER [facility] [id number] [place] 08:39:00 08:39:00 LACHELLE -[id number] [facility] 2021-10-14 2021-10-14 Lachelle MMG [place] - [id number] M at[place]or 00:00:00 00:00:00 Clayton Frazier Mediclilly duenas MD: [address] [address] , Ph. [phone] 2021-10-07 2021-10-07 Outpatient G_Pappas MMG [facility] 2021 [place] 09:09:00 09:09:00 0131 [facility] 2021-10-07 2021-10-07 Outpatient JULIANNA JOHNNY [facility] [id number] [place] 08:38:00 08:38:00 LACHELLE -[id number] [facility] 2021-10-07 2021-10-07 Lachelle MM [place] - [id number] M at[place]or 00:00:00 00:00:00 Clayton Frazier Mediclilly duenas MD: [address] [address] , Ph. [phone] 2021-09-17 2021-09-17 [facility]TEL[facility] [id number] Co mmon 00:00:00 00:00:[address] [facility] 2021-09-13 2021-09-13 Outpatient G_Pappas MMG [facility] 2021 [place] 11:57:00 11:57:00 0107 [facility] 2021-09-13 2021-09-13 Lachelle MM [place] - [id number] M at[place]or 00:00:00 00:00:00 Clayton Frazier Mediclilly duenas MD: [address] [address] , Ph. [phone] 2021-09-04 2021-09-04 [facility] [id number] [place] 13:25:00 13:25:00 LACHELLE -[id number] [facility] 2021-08-20 2021-08-20 OFFICE STLMLC STLMLC [id number] Co mmon 00:00:00 00:00:00 VISIT EST Spir it PT LEVEL 3 - [facility] 2021-08-05 2021-08-05 Outpatient JULIANNA TURNER [facility] [id number] [place] 15:05:00 15:05:00 LACHELLE -[id number] [facility] 2021-08-05 2021-08-05 Outpatient G_Pappas MMG [facility] [id number] [place] 05:23:00 05:23:00 1129 [facility] 2021-07-22 2021-07-22 (TEL) STLMLC STLC [id number] Co mmon 00:00:00 00:00:[address] [facility] 2021-07-19 2021-07-19 (TEL) STLMLC STLMLC [id number] Co mmon 00:00:00 00:00:[address] [facility] 2021-07-08 2021-07-08 Outpatient G_Pappas MMG [facility] [id number] [place] 10:14:00 10:14:00 1101 [facility] 2021-07-08 2021-07-08 Outpatient JULIANNA TURNER [facility] [id number] [place] 10:07:00 10:07:00 LACHELLE -[id number] [facility] 2021-07-08 2021-07-08 Lachelle [facility] [place] - [id number] M [place] 00:00:00 00:00:00 [facility] HOPSON: [address] [place] [address] O[address], [place] [address] , Ph. [phone] 2021-06-12 2021-06-12 OFFICE STLMLC STLMLC [id number] Co mmon 00:00:00 00:00:00 VISIT [facility] LEVEL 3 [facility] 2021-05-16 2021-05-16 Outpatient G_Pappas [facility] 2020 [place] 04:13:00 04:13:00 0909 [facility] 2021-05-16 2021-05-16 Matthew MMG [place] - [id number] M [place] 00:00:00 00:00:00 Discovery susan Costello MD: 600 [facility] - [address], [facility] [place] [id number] , Ph. [phone] 2021-05-15 2021-05-15 (TEL) STLMLC STLMLC [id number] Co mmon 00:00:00 00:00:[address] [facility] 2021-05-14 2021-05-14 Outpatient G_Pappas [facility] [address] [place] 11:09:00 11:09:00 0907 [facility] 2021-05-14 2021-05-14 (TEL) STLMLC STLMLC [id number] Co mmon 00:00:00 00:00:[address] [facility] 2021-04-18 2021-04-18 Outpatient STLMLC STLMLC [id number] Common 00:00:00 00:00:[address] [facility] 2021-04-16 2021-04-16 Outpatient STLMLC STLMLC [id number] Common 00:00:00 00:00:[address] [facility] 2021-04-12 2021-04-12 Outpatient STLMLC STLMLC [id number] Common 00:00:00 00:00:[address] [facility] 2021-03-19 2021-03-19 Outpatient STLMLC STLMLC [id number] Common 00:00:00 00:00:[address] [facility] 2021-03-05 2021-03-05 Outpatient STLMLC STLMLC [id number] Common 00:00:00 00:00:[address] [facility] 2021-02-21 2021-02-21 Outpatient STLMLC STLMLC [id number] Common 00:00:00 00:00:[address] 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 2021-02-17 2021-02-17 Outpatient YUKI KNOWLES [facility] 9[address] [place] 11:35:00 11:35:00 [facility] 2021-02-15 2021-02-15 Outpatient YUKI KNOWLES [facility] 938 [place] 01:22:00 01:22:00 [facility]11 [facility] 2021-02-11 2021-02-11 Outpatient STLMLC STLMLC [id number] Common 00:00:00 00:00:[address] [facility] 2021-02-08 2021-02-08 Outpatient STLMLC STLMLC [id number] Common 00:00:00 00:00:[address] [facility] 2021-02-07 2021-02-07 Outpatient STLMLC STLMLC [id number] Common 00:00:00 00:00:[address] [facility] 2021-01-22 2021-01-22 Outpatient STLMLC STLMLC [id number] Common 00:00:00 00:00:[address] [facility] 2021-01-22 2021-01-22 Outpatient STLMLC STLMLC [id number] Common 00:00:00 00:00:[address] [facility] 2020-12-24 2020-12-24 Outpatient STLMLC STLMLC [id number] Common 00:00:00 00:00:[address] [facility] 2020-12-24 2020-12-24 Outpatient STLMLC STLMLC [id number] Common 00:00:00 00:00:[address] [facility] 2020-11-26 2020-11-26 Outpatient STLMLC STLMLC [id number] Common 00:00:00 00:00:[address] [facility] 2020-10-26 2020-10-26 Outpatient STLMLC STLMLC [id number] Common 00:00:00 00:00:[address] [facility] 2020-10-01 2020-10-01 Outpatient STLMLC STLMLC [id number] Common 00:00:00 00:00:[address] [facility] 2020-09-18 2020-09-18 Outpatient LISTER[facility]I [facility] 9[address] [place] 11:33:00 11:33:00 [facility]112 [facility] 2020-09-17 2020-09-17 Outpatient LISTER_MELI MEHOP [facility] 9[address] [place] 01:33:00 01:33:00 [facility] 2020-09-05 2020-09-05 Outpatient STLMLC STLMLC [id number] Common 00:00:00 00:00:[address] [facility] 2020-07-31 2020-07-31 Outpatient STLMLC STLMLC [id number] Common 00:00:00 00:00:[address] [facility] 2020-07-02 2020-07-02 Outpatient STLMLC STLMLC [id number] Common 00:00:00 00:00:[address] [facility] 2020-05-29 2020-05-29 Outpatient STLMLC STLMLC [id number] Common 00:00:00 00:00:[address] [facility] 2020-05-02 2020-05-02 [facility] [id number] Common 09:40:00 09:40:00 Retora Black [facility] it Drive [facility] 2020-04-03 2020-04-03 [facility] [id number] Common 14:11:00 14:11:[address] [facility] 2020-04-02 2020-04-02 Out[facility] [id number] Common 14:44:00 14:44:[address] [facility] 2020-03-05 2020-03-05 Out[facility] [id number] Common 10:00:00 10:00:[address] [facility] 2020-01-26 2020-01-26 Out[facility] [id number] Common 10:07:00 10:07:[address] [facility] 2019-12-28 2019-12-28 Out[facility] [id number] Common 11:20:00 11:20:[address] [facility] 2019-11-24 2019-11-24 [facility] [id number] Common 09:07:00 09:07:[address] [facility] 2019-10-27 2019-10-27 [facility] [id number] Common 09:00:00 09:00:[address] [facility] 2019-09-27 2019-09-27 [facility] [id number] Common 09:40:00 09:40:[address] [facility] 2019-08-24 2019-08-24 [facility] [id number] Common 10:00:00 10:00:[address] [facility] 2019-07-25 2019-07-25 [facility] [id number] Common 11:00:00 11:00:[address] [facility] 2019-06-22 2019-06-22 Out[facility] [id number] Common 11:20:00 11:20:[address] [facility] 2018-11-03 2018-11-03 Out[facility] [id number] Common 15:00:00 15:00:[address] [facility] 2018-10-28 2018-10-28 Out[facility] [id number] Common 13:27:00 13:27:[address] [facility] 2018-05-28 2018-05-28 [facility] [id number] Common 07:23:00 07:23:[address] [facility] 2018-04-27 2018-04-27 Out[facility] [id number] Common 15:30:00 15:30:[address] [facility] 2018-04-27 2018-04-27 Out[facility] [id number] Common 12:02:00 12:02:[address] [facility] 2018-04-21 2018-04-21 Out[facility] [id number] Common 09:45:00 09:45:[address] [facility] 2018-04-19 2018-04-19 Outpatient [facility] [id number] Common 09:20:00 09:20:[address] [facility] 2018-04-15 2018-04-15 Out[facility] [id number] Common 15:33:00 15:33:[address] [facility] 2018-04-08 2018-04-08 Out[facility] [id number] Common 15:15:00 15:15:[address] [facility] 2018-03-25 2018-03-25 Out[facility] [id number] Common 15:15:00 15:15:[address] [facility] 2018-03-09 2018-03-09 [facility] [id number] Common 08:00:00 08:00:[address] [facility] 2018-03-03 2018-03-03 [facility] [id number] Common 14:00:00 14:00:00 [facility] 2018-02-24 2018-02-24 [facility] [id number] Common 13:45:00 13:45:[address] [facility] 2018-01-25 2018-01-25 Out[facility] [id number] Common 15:30:00 15:30:[address] [facility] 2017-12-23 2017-12-23 Out[facility] [id number] Common 14:30:00 14:30:[address] [facility] 2017-12-01 2017-12-01 [facility] 13 [id number] Common 09:54:00 09:54:00 [facility] 2017-11-25 2017-11-25 Out[facility] [id number] Common 09:30:00 09:30:00 [facility] 2015-01-23 2015-01-24 Emergency ER UGORJI, [facility] [id number] [place] 21:58:00 00:20:00 MARIAN -[id number] [facility] 2014-10-12 2014-10-12 Outpatient EL VALLOGLENROYILLI [facility] D00 [id number] [place] 15:52:00 15:52:00 ROBERTO Duenas -[id number] [facility] 2014-09-11 2014-09-11 Outpatient EL VALLOGLENROYILLI [facility] D00 [id number] [place] 12:03:00 12:03:00 L, AMMINI -[id number] [facility] 2014-04-06 2014-04-06 Outpatient EL VALLOPPILLI [facility] D00 [id number] [place] 15:47:00 15:47:00 L, AMMINI -[id number] [facility] 2010-06-10 2010-06-10 Outpatient EL VALLOPPILLI [facility] D00 [id number] [place] 09:18:00 09:18:00 L, AMMINI -[id number] [facility] 2008-06-20 2008-06-20 Outpatient EL VALLOPPILLI [facility] D00 [id number] [place] 17:59:00 17:59:00 L, AMMINI -[id number] [facility] 2007-12-12 2007-12-12 Emergency ER BA, CONSTANCE [facility] [id number] [place] 21:17:00 23:49:00 -[id number] [facility] 2005-11-16 2005-11-16 Emergency ER IMMARAJ, [facility] [id number] [place] 20:18:00 22:50:00 PREMSWARUP -[id number] d [facility] 2003-09-08 2003-09-08 Outpatient EL VALLOPPILLI [facility] D00 [id number] [place] 11:20:00 11:20:00 L, AMMINI -[id number] [facility] 2003-08-15 2003-08-15 Outpatient EL VALLOPPILLI [facility] D00 [id number] [place] 09:02:00 09:02:00 L, AMMINI -[id number] [facility] 2003-07-31 2003-07-31 Outpatient EL VALLOPPILLI [facility] D00 [id number] [place] 08:28:00 08:28:00 L, AMMINI -[id number] [facility] 2003-07-24 2003-07-24 Outpatient UR VALLOPPILLI [facility] D00 [id number] [place] 11:14:00 11:14:00 L, AMMINI -[id number] [facility] 2002-11-02 2002-11-02 Outpatient EL FIGUEROA [facility] D00 [id number] [place] 16:21:00 16:21:00 FRANSISCO Duenas -[id number] [facility] 1998-07-12 1998-07-12 Emergency ER ABNER, [facility] [id number] [place] 14:52:00 20:45:00 CLEMENT -[id number] [facility] Results Test Description Test Time Test Comments Results Result Comments Source CT + NG + TV, DNA, urine/swab 2022-03-12 00:00:00 Test Item Value Reference Range Interpretation Comme nts lina - swab (test code = lina - swab) normal gardnerella (test code = gardnerella) abnormal A CT/NG (test code = CT/NG) normal trichomonas vaginalis addon - swab (test code = trichomonas vaginal is normal addon - swab) [facility] - [id number] 09:15:42 Test Item Value Reference Range Interpretation Comments Leukocytes (test code = Negative Leukocytes) Nitrite (test code = negative Nitrite) Urobilinogen (test code = .2 Urobilinogen) Protein (test code = 100 Protein) pH (test code = pH) 6.0 Blood (test code = Blood) Non-Hemolyzed: Trace Specific [place] (test 1.020 code = Specific [place]) Ketone (test code = Negative Ketone) Bilirubin (test code = Negative Bilirubin) Glucose (test code = Negative Glucose) Appearance (test code = Clear Appearance) Color (test code = Color) Yellow [facility]dipstick) panel - [id number] 09:15:42 Test Item Value Reference Range Interpretation Comments Leukocytes (test code = Negative Leukocytes) Nitrite (test code = negative Nitrite) Urobilinogen (test code = .2 Urobilinogen) Protein (test code = 100 Protein) pH (test code = pH) 6.0 Blood (test code = Blood) Non-Hemolyzed: Trace Specific [place] (test 1.020 code = Specific [place]) Ketone (test code = Negative Ketone) Bilirubin (test code = Negative Bilirubin) Glucose (test code = Negative Glucose) Appearance (test code = Clear Appearance) Color (test code = Color) Yellow [facility], [id number] 15:44:11 Test Item Value Reference Range Interpretation Comments Test (test code = negative Test) [facility] W Auto Differential panel - [id number] 05:22:00 Test Item Value Reference Range Interpretation Comments white blood count (test code = 19.4 K/uL 4.0-11.5 H white blood count) red blood count (test code = red 3.40 M/uL 3.80-5.20 L blood count) hemoglobin (test code = 10.0 g/dL 10.5-15.7 L hemoglobin) hematocrit (test code = 29.9 % 34.0-50.0 L hematocrit) MCV [Entitic volume] (test code = 87.9 fL 86.0-100.0 53496-4) mean corpuscular hemoglobin (test 29.4 pg 26.2-33.4 code = mean corpuscular hemoglobin) mean corpuscular HGB conc (test 33.4 g/dL 30.0-34.0 code = mean corpuscular HGB conc) red cell distribution width (test 14.6 % 12.0-15.5 code = red cell distribution width) platelet count (test code = 265 K/uL 165-450 platelet count) mean platelet volume (test code = 10.0 fL 9.4-12.6 mean platelet volume) Segmented neutrophils/100 80.5 % 44.4-80.1 H leukocytes in Blood (test code = 96517-8) Immature granulocytes [#/volume] 0.22 K/uL 0.00-0.03 H in Blood (test code = 32675-1) lymphocyte% (test code = 11.6 % 10.0-50.0 lymphocyte%) mono % (test code = mono %) 5.8 % 3.6-12.0 eos % (test code = eos %) 0.6 % 0.0-5.4 Basophils/100 leukocytes in 0.4 % 0.1-1.2 Specimen (test code = 77079-6) Band form neutrophils [#/volume] 15.66 K/uL 1.56-6.13 H in Blood (test code = 91413-2) Lymphocytes [#/volume] in Specimen 2.25 K/uL 1.18-3.74 by Automated count (test code = 61095-2) mono # (test code = mono #) 1.12 K/uL 0.24-0.86 H eos # (test code = eos #) 0.11 K/uL 0.04-0.36 basophil # (test code = basophil 0.07 K/uL 0.01-0.08 #) NRBC% (test code = NRBC%) 0 /100 WBC 0-0.2 NRBC# (test code = NRBC#) 0 K/uL [facility] W Auto Differential panel - [id number] 05:22:00 Test Item Value Reference Range Interpretation Comments white blood count (test code = 19.4 K/uL 4.0-11.5 H white blood count) red blood count (test code = red 3.40 M/uL 3.80-5.20 L blood count) hemoglobin (test code = 10.0 g/dL 10.5-15.7 L hemoglobin) hematocrit (test code = 29.9 % 34.0-50.0 L hematocrit) MCV [Entitic volume] (test code = 87.9 fL 86.0-100.0 89130-3) mean corpuscular hemoglobin (test 29.4 pg 26.2-33.4 code = mean corpuscular hemoglobin) mean corpuscular HGB conc (test 33.4 g/dL 30.0-34.0 code = mean corpuscular HGB conc) red cell distribution width (test 14.6 % 12.0-15.5 code = red cell distribution width) platelet count (test code = 265 K/uL 165-450 platelet count) mean platelet volume (test code = 10.0 fL 9.4-12.6 mean platelet volume) Segmented neutrophils/100 80.5 % 44.4-80.1 H leukocytes in Blood (test code = 89698-3) Immature granulocytes [#/volume] 0.22 K/uL 0.00-0.03 H in Blood (test code = 97141-7) lymphocyte% (test code = 11.6 % 10.0-50.0 lymphocyte%) mono % (test code = mono %) 5.8 % 3.6-12.0 eos % (test code = eos %) 0.6 % 0.0-5.4 Basophils/100 leukocytes in 0.4 % 0.1-1.2 Specimen (test code = 89960-7) Band form neutrophils [#/volume] 15.66 K/uL 1.56-6.13 H in Blood (test code = 82961-1) Lymphocytes [#/volume] in Specimen 2.25 K/uL 1.18-3.74 by Automated count (test code = 62695-4) mono # (test code = mono #) 1.12 K/uL 0.24-0.86 H eos # (test code = eos #) 0.11 K/uL 0.04-0.36 basophil # (test code = basophil 0.07 K/uL 0.01-0.08 #) NRBC% (test code = NRBC%) 0 /100 WBC 0-0.2 NRBC# (test code = NRBC#) 0 K/uL [facility] W Auto Differential panel - [id number] 05:22:00 Test Item Value Reference Range Interpretation Comments white blood count (test code = 19.4 K/uL 4.0-11.5 H white blood count) red blood count (test code = red 3.40 M/uL 3.80-5.20 L blood count) hemoglobin (test code = 10.0 g/dL 10.5-15.7 L hemoglobin) hematocrit (test code = 29.9 % 34.0-50.0 L hematocrit) MCV [Entitic volume] (test code = 87.9 fL 86.0-100.0 80227-4) mean corpuscular hemoglobin (test 29.4 pg 26.2-33.4 code = mean corpuscular hemoglobin) mean corpuscular HGB conc (test 33.4 g/dL 30.0-34.0 code = mean corpuscular HGB conc) red cell distribution width (test 14.6 % 12.0-15.5 code = red cell distribution width) platelet count (test code = 265 K/uL 165-450 platelet count) mean platelet volume (test code = 10.0 fL 9.4-12.6 mean platelet volume) Segmented neutrophils/100 80.5 % 44.4-80.1 H leukocytes in Blood (test code = 45904-2) Immature granulocytes [#/volume] 0.22 K/uL 0.00-0.03 H in Blood (test code = 95040-8) lymphocyte% (test code = 11.6 % 10.0-50.0 lymphocyte%) mono % (test code = mono %) 5.8 % 3.6-12.0 eos % (test code = eos %) 0.6 % 0.0-5.4 Basophils/100 leukocytes in 0.4 % 0.1-1.2 Specimen (test code = 32510-9) Band form neutrophils [#/volume] 15.66 K/uL 1.56-6.13 H in Blood (test code = 13430-7) Lymphocytes [#/volume] in Specimen 2.25 K/uL 1.18-3.74 by Automated count (test code = 37467-8) mono # (test code = mono #) 1.12 K/uL 0.24-0.86 H eos # (test code = eos #) 0.11 K/uL 0.04-0.36 basophil # (test code = basophil 0.07 K/uL 0.01-0.08 #) NRBC% (test code = NRBC%) 0 /100 WBC 0-0.2 NRBC# (test code = NRBC#) 0 K/uL [facility], method unspecified - [id number] 00:00:00NeutrophilsBandLymphocyteAtypical LymphMonocyteEosinophilBasophilMetamyelocyteNucleated Red Blood CellAbs Neutrophil Count (Man)Abs Lymph Count (Man)Abs Monocyte Count (Man)Abs Eosinophil Count (Man)Abs Basophil Count (Man)Platelet EstimatePlatelet MorphologyHypochromasiaTarget CellsGiant PlateletsMississippi State Hospital Differential panel, method unspecified - [id number] 00:00:00 NeutrophilsBandLymphocyteAtypical LymphMonocyteEosinophilBasophilMetamyelocyteNucleated Red Blood CellAbs Neutrophil Count (Man)Abs Lymph Count (Man)Abs Monocyte Count (Man)Abs Eosinophil Count (Man)Abs Basophil Count (Man)Platelet EstimatePlatelet MorphologyHypochromasiaTarget CellsGiant PlateletsOrtagorda Medical Group Differential panel, method unspecified - [id number] 00:00:00 NeutrophilsBandLymphocyteAtypical LymphMonocyteEosinophilBasophilMetamyelocyteNucleated Red Blood CellAbs Neutrophil Count (Man)Abs Lymph Count (Man)Abs Monocyte Count (Man)Abs Eosinophil Count (Man)Abs Basophil Count (Man)Platelet EstimatePlatelet MorphologyHypochromasiaTarget CellsUPMC Western MarylandCBC W Auto Differential panel - [id number] 05:25:00 Test Item Value Reference Range Interpretation Comments white blood count (test code = 20.0 K/uL 4.0-11.5 H white blood count) red blood count (test code = red 3.76 M/uL 3.80-5.20 L blood count) hemoglobin (test code = 11.2 g/dL 10.5-15.7 hemoglobin) hematocrit (test code = 33.2 % 34.0-50.0 L hematocrit) MCV [Entitic volume] (test code = 88.3 fL 86.0-100.0 51482-0) mean corpuscular hemoglobin (test 29.8 pg 26.2-33.4 code = mean corpuscular hemoglobin) mean corpuscular HGB conc (test 33.7 g/dL 30.0-34.0 code = mean corpuscular HGB conc) red cell distribution width (test 14.7 % 12.0-15.5 code = red cell distribution width) platelet count (test code = 302 K/uL 165-450 platelet count) mean platelet volume (test code = 10.5 fL 9.4-12.6 mean platelet volume) Segmented neutrophils/100 86.5 % 44.4-80.1 H leukocytes in Blood (test code = 11768-0) Immature granulocytes [#/volume] 0.28 K/uL 0.00-0.03 H in Blood (test code = 82063-6) lymphocyte% (test code = 7.4 % 10.0-50.0 L lymphocyte%) mono % (test code = mono %) 4.3 % 3.6-12.0 eos % (test code = eos %) 0.2 % 0.0-5.4 Basophils/100 leukocytes in 0.2 % 0.1-1.2 Specimen (test code = 49314-5) Band form neutrophils [#/volume] 17.54 K/uL 1.56-6.13 H in Blood (test code = 38813-0) Lymphocytes [#/volume] in Specimen 1.51 K/uL 1.18-3.74 by Automated count (test code = 82985-6) mono # (test code = mono #) 0.88 K/uL 0.24-0.86 H eos # (test code = eos #) 0.04 K/uL 0.04-0.36 basophil # (test code = basophil 0.04 K/uL 0.01-0.08 #) NRBC% (test code = NRBC%) 0 /100 WBC 0-0.2 NRBC# (test code = NRBC#) 0 K/uL [facility] (COVID-19) RNA [Presence] in Respiratory specimen by ANNETTA with probe [id number] 05:25:3986968-5JhxlyjipfGulfport Behavioral Health SystemBlood type and Indirect antibody screen panel - [id number] 05:25:00 Test Item Value Reference Range Interpretation Comments Rh [Type] in Blood (test code = 4+ 96792-5) ABO and Rh group panel - Blood A positive (test code = 79367-0) [facility] Auto Differential panel - [id number] 05:25:00 Test Item Value Reference Range Interpretation Comments white blood count (test code = 20.0 K/uL 4.0-11.5 H white blood count) red blood count (test code = red 3.76 M/uL 3.80-5.20 L blood count) hemoglobin (test code = 11.2 g/dL 10.5-15.7 hemoglobin) hematocrit (test code = 33.2 % 34.0-50.0 L hematocrit) MCV [Entitic volume] (test code = 88.3 fL 86.0-100.0 24851-2) mean corpuscular hemoglobin (test 29.8 pg 26.2-33.4 code = mean corpuscular hemoglobin) mean corpuscular HGB conc (test 33.7 g/dL 30.0-34.0 code = mean corpuscular HGB conc) red cell distribution width (test 14.7 % 12.0-15.5 code = red cell distribution width) platelet count (test code = 302 K/uL 165-450 platelet count) mean platelet volume (test code = 10.5 fL 9.4-12.6 mean platelet volume) Segmented neutrophils/100 86.5 % 44.4-80.1 H leukocytes in Blood (test code = 35159-8) Immature granulocytes [#/volume] 0.28 K/uL 0.00-0.03 H in Blood (test code = 18411-7) lymphocyte% (test code = 7.4 % 10.0-50.0 L lymphocyte%) mono % (test code = mono %) 4.3 % 3.6-12.0 eos % (test code = eos %) 0.2 % 0.0-5.4 Basophils/100 leukocytes in 0.2 % 0.1-1.2 Specimen (test code = 80890-1) Band form neutrophils [#/volume] 17.54 K/uL 1.56-6.13 H in Blood (test code = 74562-6) Lymphocytes [#/volume] in Specimen 1.51 K/uL 1.18-3.74 by Automated count (test code = 23418-4) mono # (test code = mono #) 0.88 K/uL 0.24-0.86 H eos # (test code = eos #) 0.04 K/uL 0.04-0.36 basophil # (test code = basophil 0.04 K/uL 0.01-0.08 #) NRBC% (test code = NRBC%) 0 /100 WBC 0-0.2 NRBC# (test code = NRBC#) 0 K/uL [facility] DkgjwEDRQ-RlY-6 (COVID-19) RNA [Presence] in Respiratory specimen by ANNETTA with probe [id number] 05:25:1677452-7Xthxdvsqm Medical GroupBlood type and Indirect antibody screen panel - [id number] 05:25:00 Test Item Value Reference Range Interpretation Comments Rh [Type] in Blood (test code = 4+ 15472-9) ABO and Rh group panel - Blood A positive (test code = 06906-4) [facility] W Auto Differential panel - [id number] 05:25:00 Test Item Value Reference Range Interpretation Comments white blood count (test code = 20.0 K/uL 4.0-11.5 H white blood count) red blood count (test code = red 3.76 M/uL 3.80-5.20 L blood count) hemoglobin (test code = 11.2 g/dL 10.5-15.7 hemoglobin) hematocrit (test code = 33.2 % 34.0-50.0 L hematocrit) MCV [Entitic volume] (test code = 88.3 fL 86.0-100.0 31500-7) mean corpuscular hemoglobin (test 29.8 pg 26.2-33.4 code = mean corpuscular hemoglobin) mean corpuscular HGB conc (test 33.7 g/dL 30.0-34.0 code = mean corpuscular HGB conc) red cell distribution width (test 14.7 % 12.0-15.5 code = red cell distribution width) platelet count (test code = 302 K/uL 165-450 platelet count) mean platelet volume (test code = 10.5 fL 9.4-12.6 mean platelet volume) Segmented neutrophils/100 86.5 % 44.4-80.1 H leukocytes in Blood (test code = 25793-9) Immature granulocytes [#/volume] 0.28 K/uL 0.00-0.03 H in Blood (test code = 48778-3) lymphocyte% (test code = 7.4 % 10.0-50.0 L lymphocyte%) mono % (test code = mono %) 4.3 % 3.6-12.0 eos % (test code = eos %) 0.2 % 0.0-5.4 Basophils/100 leukocytes in 0.2 % 0.1-1.2 Specimen (test code = 51217-7) Band form neutrophils [#/volume] 17.54 K/uL 1.56-6.13 H in Blood (test code = 53094-1) Lymphocytes [#/volume] in Specimen 1.51 K/uL 1.18-3.74 by Automated count (test code = 08133-2) mono # (test code = mono #) 0.88 K/uL 0.24-0.86 H eos # (test code = eos #) 0.04 K/uL 0.04-0.36 basophil # (test code = basophil 0.04 K/uL 0.01-0.08 #) NRBC% (test code = NRBC%) 0 /100 WBC 0-0.2 NRBC# (test code = NRBC#) 0 K/uL [facility] RNA [Presence] in Respiratory specimen by ANNETTA with probe [id number] 05:25:2429467-7YvmhtojfkGulfport Behavioral Health SystemBlood type and Indirect antibody screen panel - [id number] 05:25:00 Test Item Value Reference Range Interpretation Comments Rh [Type] in Blood (test code = 4+ 83805-0) ABO and Rh group panel - Blood A positive (test code = 74428-9) [facility], method unspecified - [id number] 00:00:00NeutrophilsBandLymphocyteAtypical LymphMonocyteEosinophilBasophilMetamyelocyteNucleated Red Blood CellAbs Neutrophil Count (Man)Abs Lymph Count (Man)Abs Monocyte Count (Man)Abs Eosinophil Count (Man)Abs Basophil Count (Man)Platelet EstimatePlatelet MorphologyHypochromasiaTarget CellsMississippi State HospitalReagin Ab [Presence] in Serum by [id number] 00:00:00 Test Item Value Reference Range Interpretation Comments Reagin Ab [Presence] in Serum by nonreactive nonreactive RPR (test code = 51920-2) [facility] HospitalHepatitis B virus surface Ag [Presence] in Serum 2021-12-01 00:00:00 Test Item Value Reference Range Interpretation Comments .hepatitis B surface antigen (test negative negative code = .hepatitis B surface antigen) [facility]Different[facility] panel, method unspecified - [id number] 00:00:00NeutrophilsBandLymphocyteAtypical LymphMonocyteEosinophilBasophilMetamyelocyteNucleated Red Blood CellAbs Neutrophil Count (Man)Abs Lymph Count (Man)Abs Monocyte Count (Man)Abs Eosinophil Count (Man)Abs Basophil Count (Man)Platelet EstimatePlatelet MorphologyHypochromasiaTarget CellsMaOCH Regional Medical CenterReagin Ab [Presence] in Serum by [id number] 00:00:00 Test Item Value Reference Range Interpretation Comments Reagin Ab [Presence] in Serum by nonreactive nonreactive RPR (test code = 02800-2) [facility] HospitalHepatitis B virus surface Ag [Presence] in Serum 2021-12-01 00:00:00 Test Item Value Reference Range Interpretation Comments .hepatitis B surface antigen (test negative negative code = .hepatitis B surface antigen) [facility]Different[facility] panel, method unspecified - [id number] 00:00:00NeutrophilsBandLymphocyteAtypical LymphMonocyteEosinophilBasophilMetamyelocyteNucleated Red Blood CellAbs Neutrophil Count (Man)Abs Lymph Count (Man)Abs Monocyte Count (Man)Abs Eosinophil Count (Man)Abs Basophil Count (Man)Platelet EstimatePlatelet MorphologyHypochromasiaTarget CellsMississippi State HospitalReagin Ab [Presence] in Serum by [id number] 00:00:00 Test Item Value Reference Range Interpretation Comments Reagin Ab [Presence] in Serum by nonreactive nonreactive RPR (test code = 73734-9) [facility] B virus surface Ag [Presence] in Serum 2021-12-01 00:00:00 Test Item Value Reference Range Interpretation Comments .hepatitis B surface antigen (test negative negative code = .hepatitis B surface antigen) [facility] HospitalUrinalysis macro (dipstick) panel - [id number] 11:21:43 Test Item Value Reference Range Interpretation Comments Leukocytes (test code = Small Leukocytes) Nitrite (test code = Nitrite) negative Urobilinogen (test code = .2 Urobilinogen) Protein (test code = Protein) Negative pH (test code = pH) 7.0 Blood (test code = Blood) Negative Specific [place] (test code = 1.025 Specific [place]) Ketone (test code = Ketone) Trace Bilirubin (test code = Negative Bilirubin) Glucose (test code = Glucose) 100 Appearance (test code = Slightly Cloudy Appearance) Color (test code = Color) Yellow [facility] HospitalUrinalysis macro (dipstick) panel - [id number] 11:21:43 Test Item Value Reference Range Interpretation Comments Leukocytes (test code = Small Leukocytes) Nitrite (test code = Nitrite) negative Urobilinogen (test code = .2 Urobilinogen) Protein (test code = Protein) Negative pH (test code = pH) 7.0 Blood (test code = Blood) Negative Specific [place] (test code = 1.025 Specific [place]) Ketone (test code = Ketone) Trace Bilirubin (test code = Negative Bilirubin) Glucose (test code = Glucose) 100 Appearance (test code = Slightly Cloudy Appearance) Color (test code = Color) Yellow [facility] HospitalUrinalysis macro (dipstick) panel - [id number] 11:21:43 Test Item Value Reference Range Interpretation Comments Leukocytes (test code = Small Leukocytes) Nitrite (test code = Nitrite) negative Urobilinogen (test code = .2 Urobilinogen) Protein (test code = Protein) Negative pH (test code = pH) 7.0 Blood (test code = Blood) Negative Specific [place] (test code = 1.025 Specific [place]) Ketone (test code = Ketone) Trace Bilirubin (test code = Negative Bilirubin) Glucose (test code = Glucose) 100 Appearance (test code = Slightly Cloudy Appearance) Color (test code = Color) Yellow [facility] Groupculture, vaginal/rectal, streptococcus group [id number] 00:00:00 Test Item Value Reference Range Interpretation Comments group B strep (test code = group B negative strep) [facility] GroupCT + NG + TV, DNA, [id number] 00:00:00 Test Item Value Reference Range Interpretation Comments lina - swab (test code = lina normal - swab) gardnerella (test code = abnormal A gardnerella) CT/NG (test code = CT/NG) normal trichomonas vaginalis addon - swab normal (test code = trichomonas vaginalis addon - swab) [facility] Groupculture, vaginal/rectal, streptococcus group [id number] 00:00:00 Test Item Value Reference Range Interpretation Comments group B strep (test code = group B negative strep) [facility] GroupCT + NG + TV, DNA, [id number] 00:00:00 Test Item Value Reference Range Interpretation Comments lina - swab (test code = lina normal - swab) gardnerella (test code = abnormal A gardnerella) CT/NG (test code = CT/NG) normal trichomonas vaginalis addon - swab normal (test code = trichomonas vaginalis addon - swab) [facility] HospitalUrinalysis macro (dipstick) panel - [id number] 11:25:22 Test Item Value Reference Range Interpretation Comments Leukocytes (test code = Large Leukocytes) Nitrite (test code = Nitrite) negative Urobilinogen (test code = .2 Urobilinogen) Protein (test code = Protein) Negative pH (test code = pH) 7.0 Blood (test code = Blood) Negative Specific [place] (test code = 1.020 Specific [place]) Ketone (test code = Ketone) Negative Bilirubin (test code = Negative Bilirubin) Glucose (test code = Glucose) Negative Appearance (test code = Slightly Cloudy Appearance) Color (test code = Color) Yellow [facility] HospitalUrinalysis macro (dipstick) panel - [id number] 11:25:22 Test Item Value Reference Range Interpretation Comments Leukocytes (test code = Large Leukocytes) Nitrite (test code = Nitrite) negative Urobilinogen (test code = .2 Urobilinogen) Protein (test code = Protein) Negative pH (test code = pH) 7.0 Blood (test code = Blood) Negative Specific [place] (test code = 1.020 Specific [place]) Ketone (test code = Ketone) Negative Bilirubin (test code = Negative Bilirubin) Glucose (test code = Glucose) Negative Appearance (test code = Slightly Cloudy Appearance) Color (test code = Color) Yellow [facility] HospitalUrinalysis macro (dipstick) panel - [id number] 11:25:22 Test Item Value Reference Range Interpretation Comments Leukocytes (test code = Large Leukocytes) Nitrite (test code = Nitrite) negative Urobilinogen (test code = .2 Urobilinogen) Protein (test code = Protein) Negative pH (test code = pH) 7.0 Blood (test code = Blood) Negative Specific [place] (test code = 1.020 Specific [place]) Ketone (test code = Ketone) Negative Bilirubin (test code = Negative Bilirubin) Glucose (test code = Glucose) Negative Appearance (test code = Slightly Cloudy Appearance) Color (test code = Color) Yellow [facility] HospitalUrinalysis macro (dipstick) panel - [id number] 11:25:22 Test Item Value Reference Range Interpretation Comments Leukocytes (test code = Large Leukocytes) Nitrite (test code = Nitrite) negative Urobilinogen (test code = .2 Urobilinogen) Protein (test code = Protein) Negative pH (test code = pH) 7.0 Blood (test code = Blood) Negative Specific [place] (test code = 1.020 Specific [place]) Ketone (test code = Ketone) Negative Bilirubin (test code = Negative Bilirubin) Glucose (test code = Glucose) Negative Appearance (test code = Slightly Cloudy Appearance) Color (test code = Color) Yellow [facility] HospitalUrinalysis macro (dipstick) panel - [id number] 10:33:11 Test Item Value Reference Range Interpretation Comments Leukocytes (test code = Leukocytes) Small Nitrite (test code = Nitrite) negative Urobilinogen (test code = .2 Urobilinogen) Protein (test code = Protein) Trace pH (test code = pH) 6.5 Blood (test code = Blood) Negative Specific [place] (test code = 1.020 Specific [place]) Ketone (test code = Ketone) Negative Bilirubin (test code = Bilirubin) Negative Glucose (test code = Glucose) Negative Appearance (test code = Appearance) Clear Color (test code = Color) Yellow [facility] HospitalUrinalysis macro (dipstick) panel - [id number] 10:33:11 Test Item Value Reference Range Interpretation Comments Leukocytes (test code = Leukocytes) Small Nitrite (test code = Nitrite) negative Urobilinogen (test code = .2 Urobilinogen) Protein (test code = Protein) Trace pH (test code = pH) 6.5 Blood (test code = Blood) Negative Specific [place] (test code = 1.020 Specific [place]) Ketone (test code = Ketone) Negative Bilirubin (test code = Bilirubin) Negative Glucose (test code = Glucose) Negative Appearance (test code = Appearance) Clear Color (test code = Color) Yellow [facility] HospitalUrinalysis macro (dipstick) panel - [id number] 10:33:11 Test Item Value Reference Range Interpretation Comments Leukocytes (test code = Leukocytes) Small Nitrite (test code = Nitrite) negative Urobilinogen (test code = .2 Urobilinogen) Protein (test code = Protein) Trace pH (test code = pH) 6.5 Blood (test code = Blood) Negative Specific [place] (test code = 1.020 Specific [place]) Ketone (test code = Ketone) Negative Bilirubin (test code = Bilirubin) Negative Glucose (test code = Glucose) Negative Appearance (test code = Appearance) Clear Color (test code = Color) Yellow [facility] HospitalUrinalysis macro (dipstick) panel - [id number] 10:33:11 Test Item Value Reference Range Interpretation Comments Leukocytes (test code = Leukocytes) Small Nitrite (test code = Nitrite) negative Urobilinogen (test code = .2 Urobilinogen) Protein (test code = Protein) Trace pH (test code = pH) 6.5 Blood (test code = Blood) Negative Specific [place] (test code = 1.020 Specific [place]) Ketone (test code = Ketone) Negative Bilirubin (test code = Bilirubin) Negative Glucose (test code = Glucose) Negative Appearance (test code = Appearance) Clear Color (test code = Color) Yellow [facility] HospitalUrinalysis macro (dipstick) panel - [id number] 10:33:11 Test Item Value Reference Range Interpretation Comments Leukocytes (test code = Leukocytes) Small Nitrite (test code = Nitrite) negative Urobilinogen (test code = .2 Urobilinogen) Protein (test code = Protein) Trace pH (test code = pH) 6.5 Blood (test code = Blood) Negative Specific [place] (test code = 1.020 Specific [place]) Ketone (test code = Ketone) Negative Bilirubin (test code = Bilirubin) Negative Glucose (test code = Glucose) Negative Appearance (test code = Appearance) Clear Color (test code = Color) Yellow [facility] HospitalUrinalysis macro (dipstick) panel - [id number] 08:29:56 Test Item Value Reference Range Interpretation Comments Leukocytes (test code = Small Leukocytes) Nitrite (test code = Nitrite) negative Urobilinogen (test code = .2 Urobilinogen) Protein (test code = Protein) Negative pH (test code = pH) 7.5 Blood (test code = Blood) Negative Specific [place] (test code = 1.020 Specific [place]) Ketone (test code = Ketone) Negative Bilirubin (test code = Negative Bilirubin) Glucose (test code = Glucose) Negative Appearance (test code = Slightly Cloudy Appearance) Color (test code = Color) Yellow [facility] HospitalUrinalysis macro (dipstick) panel - [id number] 08:29:56 Test Item Value Reference Range Interpretation Comments Leukocytes (test code = Small Leukocytes) Nitrite (test code = Nitrite) negative Urobilinogen (test code = .2 Urobilinogen) Protein (test code = Protein) Negative pH (test code = pH) 7.5 Blood (test code = Blood) Negative Specific [place] (test code = 1.020 Specific [place]) Ketone (test code = Ketone) Negative Bilirubin (test code = Negative Bilirubin) Glucose (test code = Glucose) Negative Appearance (test code = Slightly Cloudy Appearance) Color (test code = Color) Yellow [facility]Urinalysis macro (dipstick) panel - [id number] 08:29:56 Test Item Value Reference Range Interpretation Comments Leukocytes (test code = Small Leukocytes) Nitrite (test code = Nitrite) negative Urobilinogen (test code = .2 Urobilinogen) Protein (test code = Protein) Negative pH (test code = pH) 7.5 Blood (test code = Blood) Negative Specific [place] (test code = 1.020 Specific [place]) Ketone (test code = Ketone) Negative Bilirubin (test code = Negative Bilirubin) Glucose (test code = Glucose) Negative Appearance (test code = Slightly Cloudy Appearance) Color (test code = Color) Yellow [facility]Urinalysis macro (dipstick) panel - [id number] 08:29:56 Test Item Value Reference Range Interpretation Comments Leukocytes (test code = Small Leukocytes) Nitrite (test code = Nitrite) negative Urobilinogen (test code = .2 Urobilinogen) Protein (test code = Protein) Negative pH (test code = pH) 7.5 Blood (test code = Blood) Negative Specific [place] (test code = 1.020 Specific [place]) Ketone (test code = Ketone) Negative Bilirubin (test code = Negative Bilirubin) Glucose (test code = Glucose) Negative Appearance (test code = Slightly Cloudy Appearance) Color (test code = Color) Yellow [facility] HospitalCB W Auto Differential panel - [id number] 07:48:00 Test Item Value Reference Range Interpretation Comments white blood count (test code = 15.0 K/uL 4.0-11.5 H white blood count) red blood count (test code = red 3.80 M/uL 3.80-5.20 blood count) hemoglobin (test code = 11.4 g/dL 10.5-15.7 hemoglobin) hematocrit (test code = 35.1 % 34.0-50.0 hematocrit) MCV [Entitic volume] (test code = 92.4 fL 86.0-100.0 44824-2) mean corpuscular hemoglobin (test 30.0 pg 26.2-33.4 code = mean corpuscular hemoglobin) mean corpuscular HGB conc (test 32.5 g/dL 30.0-34.0 code = mean corpuscular HGB conc) red cell distribution width (test 13.2 % 12.0-15.5 code = red cell distribution width) platelet count (test code = 385 K/uL 165-450 platelet count) mean platelet volume (test code = 10.2 fL 9.4-12.6 mean platelet volume) Segmented neutrophils/100 78.6 % 44.4-80.1 leukocytes in Blood (test code = 12729-2) Immature granulocytes [#/volume] 0.27 K/uL 0.00-0.03 H in Blood (test code = 55816-5) lymphocyte% (test code = 12.6 % 10.0-50.0 lymphocyte%) mono % (test code = mono %) 5.5 % 3.6-12.0 eos % (test code = eos %) 0.9 % 0.0-5.4 Basophils/100 leukocytes in 0.6 % 0.1-1.2 Specimen (test code = 00942-7) Band form neutrophils [#/volume] 11.83 K/uL 1.56-6.13 H in Blood (test code = 16379-8) Lymphocytes [#/volume] in Specimen 1.89 K/uL 1.18-3.74 by Automated count (test code = 23506-4) mono # (test code = mono #) 0.83 K/uL 0.24-0.86 eos # (test code = eos #) 0.13 K/uL 0.04-0.36 basophil # (test code = basophil 0.09 K/uL 0.01-0.08 H #) NRBC% (test code = NRBC%) 0 /100 WBC 0-0.2 NRBC# (test code = NRBC#) 0 K/uL [facility]Blood [facility] [Presence] in Serum or Plasma 2021-10-07 07:48:00 Test Item Value Reference Range Interpretation Comments Blood group antibody screen negative [Presence] in Serum or Plasma (test code = 890-4) [facility] W Auto Differential panel - [id number] 07:48:00 Test Item Value Reference Range Interpretation Comments white blood count (test code = 15.0 K/uL 4.0-11.5 H white blood count) red blood count (test code = red 3.80 M/uL 3.80-5.20 blood count) hemoglobin (test code = 11.4 g/dL 10.5-15.7 hemoglobin) hematocrit (test code = 35.1 % 34.0-50.0 hematocrit) MCV [Entitic volume] (test code = 92.4 fL 86.0-100.0 53695-5) mean corpuscular hemoglobin (test 30.0 pg 26.2-33.4 code = mean corpuscular hemoglobin) mean corpuscular HGB conc (test 32.5 g/dL 30.0-34.0 code = mean corpuscular HGB conc) red cell distribution width (test 13.2 % 12.0-15.5 code = red cell distribution width) platelet count (test code = 385 K/uL 165-450 platelet count) mean platelet volume (test code = 10.2 fL 9.4-12.6 mean platelet volume) Segmented neutrophils/100 78.6 % 44.4-80.1 leukocytes in Blood (test code = 75287-3) Immature granulocytes [#/volume] 0.27 K/uL 0.00-0.03 H in Blood (test code = 16351-7) lymphocyte% (test code = 12.6 % 10.0-50.0 lymphocyte%) mono % (test code = mono %) 5.5 % 3.6-12.0 eos % (test code = eos %) 0.9 % 0.0-5.4 Basophils/100 leukocytes in 0.6 % 0.1-1.2 Specimen (test code = 86716-1) Band form neutrophils [#/volume] 11.83 K/uL 1.56-6.13 H in Blood (test code = 32982-9) Lymphocytes [#/volume] in Specimen 1.89 K/uL 1.18-3.74 by Automated count (test code = 09729-9) mono # (test code = mono #) 0.83 K/uL 0.24-0.86 eos # (test code = eos #) 0.13 K/uL 0.04-0.36 basophil # (test code = basophil 0.09 K/uL 0.01-0.08 H #) NRBC% (test code = NRBC%) 0 /100 WBC 0-0.2 NRBC# (test code = NRBC#) 0 K/uL [facility] [Presence] in Serum or Plasma 2021-10-07 07:48:00 Test Item Value Reference Range Interpretation Comments Blood group antibody screen negative [Presence] in Serum or Plasma (test code = 890-4) [facility] W Auto Differential panel - [id number] 07:48:00 Test Item Value Reference Range Interpretation Comments white blood count (test code = 15.0 K/uL 4.0-11.5 H white blood count) red blood count (test code = red 3.80 M/uL 3.80-5.20 blood count) hemoglobin (test code = 11.4 g/dL 10.5-15.7 hemoglobin) hematocrit (test code = 35.1 % 34.0-50.0 hematocrit) MCV [Entitic volume] (test code = 92.4 fL 86.0-100.0 65999-4) mean corpuscular hemoglobin (test 30.0 pg 26.2-33.4 code = mean corpuscular hemoglobin) mean corpuscular HGB conc (test 32.5 g/dL 30.0-34.0 code = mean corpuscular HGB conc) red cell distribution width (test 13.2 % 12.0-15.5 code = red cell distribution width) platelet count (test code = 385 K/uL 165-450 platelet count) mean platelet volume (test code = 10.2 fL 9.4-12.6 mean platelet volume) Segmented neutrophils/100 78.6 % 44.4-80.1 leukocytes in Blood (test code = 42185-2) Immature granulocytes [#/volume] 0.27 K/uL 0.00-0.03 H in Blood (test code = 32366-6) lymphocyte% (test code = 12.6 % 10.0-50.0 lymphocyte%) mono % (test code = mono %) 5.5 % 3.6-12.0 eos % (test code = eos %) 0.9 % 0.0-5.4 Basophils/100 leukocytes in 0.6 % 0.1-1.2 Specimen (test code = 68597-7) Band form neutrophils [#/volume] 11.83 K/uL 1.56-6.13 H in Blood (test code = 86899-3) Lymphocytes [#/volume] in Specimen 1.89 K/uL 1.18-3.74 by Automated count (test code = 88400-2) mono # (test code = mono #) 0.83 K/uL 0.24-0.86 eos # (test code = eos #) 0.13 K/uL 0.04-0.36 basophil # (test code = basophil 0.09 K/uL 0.01-0.08 H #) NRBC% (test code = NRBC%) 0 /100 WBC 0-0.2 NRBC# (test code = NRBC#) 0 K/uL [facility] [Presence] in Serum or Plasma 2021-10-07 07:48:00 Test Item Value Reference Range Interpretation Comments Blood group antibody screen negative [Presence] in Serum or Plasma (test code = 890-4) [facility] GroupBlood [facility] antibody screen [Presence] in Serum or Plasma 2021-10-07 07:48:00 Test Item Value Reference Range Interpretation Comments Blood group antibody screen negative [Presence] in Serum or Plasma (test code = 890-4) [facility] GroupDifferential panel, method unspecified - [id number] 00:00:00NeutrophilsBandLymphocyteAtypical LymphMonocyteEosinophilBasophilMetamyelocyteMyelocytePromyelocyteBlastsNucleated Red Blood CellAbs Neutrophil Count (Man)Abs Lymph Count (Man)Abs Monocyte Count (Man)Abs Eosinophil Count (Man)Abs Basophil Count (Man)Platelet EstimatePlatelet MorphologyToxic GranulationGiant PlateletsMatagorda Medical GroupHIV 1+2 Ab [Presence] in [id number] 00:00:00HIV P24 AgHIV-1/2 Ab [facility] GroupReagin Ab [Presence] in Serum by [id number] 00:00:00 Test Item Value Reference Range Interpretation Comments Reagin Ab [Presence] in Serum by nonreactive nonreactive RPR (test code = 19794-7) [facility], method unspecified - [id number] 00:00:00NeutrophilsBandLymphocyteAtypical LymphMonocyteEosinophilBasophilMetamyelocyteMyelocytePromyelocyteBlastsNucleated Red Blood CellAbs Neutrophil Count (Man)Abs Lymph Count (Man)Abs Monocyte Count (Man)Abs Eosinophil Count (Man)Abs Basophil Count (Man)Platelet EstimatePlatelet MorphologyToxic GranulationGiant PlateletsMatagorda Medical GroupHIV 1+2 Ab [Presence] in [id number] 00:00:00HIV P24 AgHIV-1/2 Ab [facility] GroupReagin Ab [Presence] in Serum by [id number] 00:00:00 Test Item Value Reference Range Interpretation Comments Reagin Ab [Presence] in Serum by nonreactive nonreactive RPR (test code = 41887-2) [facility]Different[facility], method unspecified - [id number] 00:00:00NeutrophilsBandLymphocyteAtypical LymphMonocyteEosinophilBasophilMetamyelocyteMyelocytePromyelocyteBlastsNucleated Red Blood CellAbs Neutrophil Count (Man)Abs Lymph Count (Man)Abs Monocyte Count (Man)Abs Eosinophil Count (Man)Abs Basophil Count (Man)Platelet EstimatePlatelet MorphologyToxic GranulationGiant PlateletsMatagorda Medical GroupHIV 1+2 Ab [Presence] in [id number] 00:00:00HIV P24 AgHIV-1/2 Ab [facility] GroupReagin Ab [Presence] in Serum by [id number] 00:00:00 Test Item Value Reference Range Interpretation Comments Reagin Ab [Presence] in Serum by nonreactive nonreactive RPR (test code = 55128-5) [facility]Different[facility], method unspecified - [id number] 00:00:00NeutrophilsBandLymphocyteAtypical LymphMonocyteEosinophilBasophilMetamyelocyteMyelocytePromyelocyteBlastsNucleated Red Blood CellAbs Neutrophil Count (Man)Abs Lymph Count (Man)Abs Monocyte Count (Man)Abs Eosinophil Count (Man)Abs Basophil Count (Man)Platelet EstimatePlatelet MorphologyToxic GranulationGiant PlateletsMatagoChoctaw General Hospital GroupHIV 1+2 Ab [Presence] in [id number] 00:00:00HIV P24 AgHIV-1/2 Ab [facility] GroupReagin Ab [Presence] in Serum by [id number] 00:00:00 Test Item Value Reference Range Interpretation Comments Reagin Ab [Presence] in Serum by nonreactive nonreactive RPR (test code = 68070-2) [facility] HospitalUrinalysis macro (dipstick) panel - [id number] 11:45:59 Test Item Value Reference Range Interpretation Comments Leukocytes (test code = Leukocytes) Negative Nitrite (test code = Nitrite) negative Urobilinogen (test code = .2 Urobilinogen) Protein (test code = Protein) Negative pH (test code = pH) 7.0 Blood (test code = Blood) Negative Specific [place] (test code = 1.030 Specific [place]) Ketone (test code = Ketone) Trace Bilirubin (test code = Bilirubin) Negative Glucose (test code = Glucose) 100 Appearance (test code = Appearance) Clear Color (test code = Color) Yellow [facility] - [id number] 11:45:59 Test Item Value Reference Range Interpretation Comments Leukocytes (test code = Leukocytes) Negative Nitrite (test code = Nitrite) negative Urobilinogen (test code = .2 Urobilinogen) Protein (test code = Protein) Negative pH (test code = pH) 7.0 Blood (test code = Blood) Negative Specific [place] (test code = 1.030 Specific [place]) Ketone (test code = Ketone) Trace Bilirubin (test code = Bilirubin) Negative Glucose (test code = Glucose) 100 Appearance (test code = Appearance) Clear Color (test code = Color) Yellow [facility] panel - [id number] 11:45:59 Test Item Value Reference Range Interpretation Comments Leukocytes (test code = Leukocytes) Negative Nitrite (test code = Nitrite) negative Urobilinogen (test code = .2 Urobilinogen) Protein (test code = Protein) Negative pH (test code = pH) 7.0 Blood (test code = Blood) Negative Specific [place] (test code = 1.030 Specific [place]) Ketone (test code = Ketone) Trace Bilirubin (test code = Bilirubin) Negative Glucose (test code = Glucose) 100 Appearance (test code = Appearance) Clear Color (test code = Color) Yellow [facility], [id number] 15:38:00 Test Item Value Reference Range Interpretation Comments Test (test code = positive Test) [facility] panel - [id number] 15:38:00 Test Item Value Reference Range Interpretation Comments Leukocytes (test code = Leukocytes) Negative Nitrite (test code = Nitrite) negative Urobilinogen (test code = .2 Urobilinogen) Protein (test code = Protein) Negative pH (test code = pH) 6.0 Blood (test code = Blood) Negative Specific [place] (test code = 1.025 Specific [place]) Ketone (test code = Ketone) Negative Bilirubin (test code = Bilirubin) Negative Glucose (test code = Glucose) Negative Appearance (test code = Appearance) Clear Color (test code = Color) [facility]
[2023-04-22] MEDS ORDERED: NA CHLORIDE 0.9% 1,000 ML ONE (07:57)
[2023-04-22 08:04] LABS: Absolute Lymphocytes (CBC) 1.2 K/uL (0.7-4.9); Lymphocytes % 13.3 % (15.3-44.8); MCV 89.6 fL (80-100); MPV 8.2 fL (7.6-11.3); Platelets 399 thou/uL (152-406); RBC Red Blood Cell Count 4.02 M/uL (3.86-4.86)
[2023-04-22 08:05] LABS: Specific Gravity 1.008 (1.005-1.030)
[2023-04-22 08:07] LABS: Specific Gravity 1.008 (1.005-1.030); Urine Bacteria None Seen /HPF (<20); Urine Bilirubin NEGATIVE (Negative); Urine Blood Negative (Negative); Urine Clarity Turbid (Clear); Urine Color Light-Yellow (Yellow); Urine Glucose NEGATIVE (Negative); Urine Mucus Slight /HPF (None Seen); Urine Protein NEGATIVE (Negative); Urine RBC <5 /HPF (None Seen); Urine Urobilinogen Normal (Normal)
[2023-04-22 08:11] LABS: Protime INR 1.05
--- NOTE | 2023-04-22 08:14 | RAD REPORT ---
EXAM DESCRIPTION: Tomas Single View04/22/2023 8:02 am CLINICAL HISTORY: Chest pain;Cough COMPARISON: No comparisons TECHNIQUE: Portable AP view of the chest. FINDINGS: The lungs are clear. No pneumothorax or effusion. The cardiomediastinal contours are unrem arkable. IMPRESSION: No acute cardiopulmonary process.
[2023-04-22 08:21] LABS: Albumin 3.8 g/dL (3.4-5.0); Bilirubin Direct 0.1 mg/dL (0-0.2); Bilirubin Indirect, Calculated 0.3 mg/dL (0.2-0.8); Bilirubin Total 0.4 mg/dL (0.2-1.0); Magnesium 2.1 mg/dL (1.6-2.4); Potassium 3.6 mEq/L (3.5-5.1); Protein, Total 7.5 g/dL (6.4-8.2); Troponin High Sensitivity 3.6 pg/mL (<58.9)
--- NOTE | 2023-04-22 08:35 | EDPHYS ---
Physician Documentation [facility] Name: Miryam Monge Age: 33 yrs Sex: Female : 1990 Arrival Date: 04/22/2023 Time: 07:06 Bed 19 Private MD: ED Physician Mian Deshpande HPI: 04/22 07:57 This 33 yrs old Female presents to ER via Ambulatory with complaints of mode Breathing Difficulty. 07:57 The patient has shortness of breath at rest, with light activity. Onset: The mode symptoms/episode began/occurred 2 day(s) ago. Duration: The symptoms are continuous, and are steadily getting worse. The patient's shortness of breath is aggravated by nothing, is alleviated by. Associated signs and symptoms: The patient has no apparent associated signs or symptoms. Severity of symptoms: At their worst the symptoms were. The patient has not experienced similar symptoms in the past. Historical: - Allergies: 07:29 No Known Allergies; bp - Home Meds: 07:29 Lexapro 10 mg Oral tablet daily [Active]; Focalin 5 mg oral tablet 2 times per day bp [Active]; lithium carbonate 300 mg Oral tablet daily [Active]; - PMHx: 07:29 ADD; Bipolar disorder; Anxiety; Depressive disorder; bp - Immunization history:: Adult Immunizations up to date. - Social history:: Smoking status: Patient denies any tobacco usage or history of. ROS: 08:04 Constitutional: Negative for fever, chills, and weight loss, Eyes: Negative for injury, mode pain, redness, and discharge, ENT: Negative for injury, pain, and discharge, Neck: Negative for injury, pain, and swelling, Cardiovascular: Negative for chest pain, palpitations, and edema, Abdomen/GI: Negative for abdominal pain, nausea, vomiting, diarrhea, and constipation, Back: Negative for injury and pain, : Negative for injury, bleeding, discharge, and swelling, MS/Extremity: Negative for injury and deformity, Skin: Negative for injury, rash, and discoloration, Neuro: Negative for headache, weakness, numbness, tingling, and seizure, Psych: Negative for depression, anxiety, suicide ideation, homicidal ideation, and hallucinations, Allergy/Immunology: Negative for hives, rash, and allergies, Endocrine: Negative for neck swelling, polydipsia, polyuria, polyphagia, and marked weight changes, Hematologic/Lymphatic: Negative for swollen nodes, abnormal bleeding, and unusual bruising. 08:04 Respiratory: Positive for shortness of breath, at rest. Exam: 08:04 Constitutional: This is a well developed, well nourished patient who is awake, alert, mode and in no acute distress. Head/Face: Normocephalic, atraumatic. Eyes: Pupils equal round and reactive to light, extra-ocular motions intact. Lids and lashes normal. Conjunctiva and sclera are non-icteric and not injected. Cornea within normal limits. Periorbital areas with no swelling, redness, or edema. ENT: Nares patent. No nasal discharge, no septal abnormalities noted. Tympanic membranes are normal and external auditory canals are clear. Oropharynx with no redness, swelling, or masses, exudates, or evidence of obstruction, uvula midline. Mucous membranes moist. Neck: Trachea midline, no thyromegaly or masses palpated, and no cervical lymphadenopathy. Supple, full range of motion without nuchal rigidity, or vertebral point tenderness. No Meningismus. Chest/axilla: Normal chest wall appearance and motion. Nontender with no deformity. No lesions are appreciated. Cardiovascular: Regular rate and rhythm with a normal S1 and S2. No gallops, murmurs, or rubs. Normal PMI, no JVD. No pulse deficits. Respiratory: Lungs have equal breath sounds bilaterally, clear to auscultation and percussion. No rales, rhonchi or wheezes noted. No increased work of breathing, no retractions or nasal flaring. Abdomen/GI: Soft, non-tender, with normal bowel sounds. No distension or tympany. No guarding or rebound. No evidence of tenderness throughout. Back: No spinal tenderness. No costovertebral tenderness. Full range of motion. Skin: Warm, dry with normal turgor. Normal color with no rashes, no lesions, and no evidence of cellulitis. MS/ Extremity: Pulses equal, no cyanosis. Neurovascular intact. Full, normal range of motion. Neuro: Awake and alert, GCS 15, oriented to person, place, time, and situation. Cranial nerves II-XII grossly intact. Motor strength 5/5 in all extremities. Sensory grossly intact. Cerebellar exam normal. Normal gait. Psych: Awake, alert, with orientation to person, place and time. Behavior, mood, and affect are within normal limits. 08:04 ECG was reviewed by the Attending Physician. Vital Signs: 07:26 BP 145 / 88; Pulse 105; Resp 18; Temp 98; Pulse Ox 97% ; Weight 63.5 kg; Height 5 ft. 0 bp in. ; 09:22 BP 135 / 91; Pulse 97; Resp 18 S; Pulse Ox 100% on R/A; kc6 07:26 Body Mass Index 27.34 (63.50 kg, 152.4 cm) bp MDM: 07:15 Patient medically screened. mode 08:05 Differential diagnosis: Anemia Anxiety Reaction Bronchitis depression, pneumonia, mode Pneumothorax pulmonary edema, Pulmonary Embolism reactive airway disease, Sepsis Unstable Angina. Antibiotic administration: Not indicated. Immunization status:. Data reviewed: vital signs, nurses notes, lab test result(s), EKG, radiologic studies, plain films. Consideration of Admission/Observation Escalation of care including admission/observation considered. I considered the following discharge prescriptions or medication management in the emergency department Medications were administered in the Emergency Department. See MAR. Test considered but Not performed: CT: no ct chest pe. Care significantly affected by the following chronic conditions: psych . 04/22 07:44 Order name: Basic Metabolic Panel; Complete Time: 08:33 [facility] 04/22 07:44 Order name: CBC with Diff; Complete Time: 08:33 mode 04/22 07:44 Order name: D-Dimer; Complete Time: 08:33 mode 04/22 07:44 Order name: LFT's; Complete Time: 08:33 [facility] 04/22 07:44 Order name: Magnesium; Complete Time: 08:33 mode 04/22 07:44 Order name: NT PRO-BNP; Complete Time: 08:33 mode 04/22 07:44 Order name: PT-INR; Complete Time: 08:33 mode 04/22 07:44 Order name: Troponin HS; Complete Time: 08:33 [facility] 04/22 07:44 Order name: Lipase; Complete Time: 08:33 mode 04/22 07:44 Order name: Urinalysis w/ reflexes; Complete Time: 08:33 [facility] 04/22 07:44 Order name: PREGU; Complete Time: 08:33 [facility] 04/22 07:44 Order name: XRAY Chest (1 view); Complete Time: 08:33 [facility] 04/22 07:44 Order name: EKG; Complete Time: 07:45 [facility] 04/22 07:44 Order name: Cardiac monitoring; Complete Time: 07:56 [facility] 04/22 07:44 Order name: EKG - Nurse/Tech; Complete Time: 07:56 [facility] 04/22 07:44 Order name: IV Saline Lock; Complete Time: 07:56 [facility] 04/22 07:44 Order name: Labs collected and sent; Complete Time: 07:56 [facility] 04/22 07:44 Order name: O2 Per Protocol; Complete Time: 07:45 [facility] 04/22 07:44 Order name: O2 Sat Monitoring; Complete Time: 07:45 [facility] EC:04 Rate is 102 beats/min. Rhythm is regular. QRS [place] is Normal. GA interval is normal. mode QRS interval is normal. QT interval is normal. No Q waves. T waves are Normal. Clinical impression: Sinus tachycardia and No evidence of ischemia. Interpreted by me. Reviewed by me. Administered Medications: : Drug: NS 0.9% IV 1000 ml Route: IV; Rate: 1 bolus; Site: right forearm; kc6 09:22 Follow up: Response: No adverse reaction; IV Status: Completed infusion; IV Intake: kc6 1000ml Disposition Summary: 04/22/23 08:34 Discharge Ordered Location: Home mode Problem: new mode Symptoms: have improved mode Condition: Stable mode Diagnosis - Anxiety disorder, unspecified mode - Tachycardia, unspecified mode - UTI/ Urinary tract infection, site not specified mode Followup: mode - With: Private Physician - When: 2 - 3 days - Reason: Recheck today's complaints, Continuance of care, Re-evaluation by your physician Followup: mode - With: - When: 2 - 3 days - Reason: Recheck today's complaints, Re-evaluation by your physician Discharge Instructions: - Discharge Summary Sheet mode - Panic Attack mode - Urinary Tract Infection, Adult, [id number]-Cmjj mode - Panic Attack, Elsu-jx-[id number] mode - Supporting Someone With Anxiety mode - Managing Anxiety, Adult mode Forms: - Medication Reconciliation Form mode - Thank You Letter mode - Antibiotic Education mode - Prescription Opioid Use mode - Patient Portal Instructions mode - Leadership Thank You Letter [facility] Prescriptions: - Hydroxyzine HCl 25 mg Oral Tablet - take 1 tablet by ORAL route every 6 hours As needed; 30 tablet; Refills: 0, mode Product Selection Permitted - Macrobid 100 mg Oral Capsule - take 1 capsule by ORAL route every 12 hours for 7 days; 14 capsule; Refills: 0, mode Product Selection Permitted Signatures: Dispatcher [employer] Mian Ramesh MD MD cha Peltier, Brian, RN RN bp Mady Diamond RN RN kc6
--- NOTE | 2023-04-22 08:35 | ER ---
Nurse's Notes [facility] Name: Miryam Monge Age: 33 yrs Sex: Female : 1990 Arrival Date: 04/22/2023 Time: 07:06 Bed 19 Private MD: Diagnosis: Anxiety disorder, unspecified;Tachycardia, unspecified;UTI/ Urinary tract infection, site not specified Presentation: 04/22 07:26 Chief complaint: Patient states: "I MIGHT JUST BE STRESSED. MY HEART STARTED GOING FAST bp AND I FELT LIKE I MIGHT BE HAVING A PANIC ATTACK.". Coronavirus screen: At this time, the client does not indicate any symptoms associated with coronavirus-19. Ebola Screen: No symptoms or risks identified at this time. Initial Sepsis Screen: Does the patient meet any 2 criteria? No. Patient's initial sepsis screen is negative. Does the patient have a suspected source of infection? No. Patient's initial sepsis screen is negative. Risk Assessment: Do you want to hurt yourself or someone else? Patient reports no desire to harm self or others. Onset of symptoms was April 22, 2023. 07:26 Method Of Arrival: Ambulatory bp 07:26 Acuity: GALINDO 4 bp Historical: - Allergies: 07:29 No Known Allergies; bp - Home Meds: 07:29 Lexapro 10 mg Oral tablet daily [Active]; Focalin 5 mg oral tablet 2 times per day bp [Active]; lithium carbonate 300 mg Oral tablet daily [Active]; - PMHx: 07:29 ADD; Bipolar disorder; Anxiety; Depressive disorder; bp - Immunization history:: Adult Immunizations up to date. - Social history:: Smoking status: Patient denies any tobacco usage or history of. Screenin:01 [facility] ED Fall Risk Assessment (Adult) History of falling in the last 3 months, kc6 including since admission No falls in past 3 months (0 pts) Confusion or Disorientation No (0 pts) Intoxicated or Sedated No (0 pts) Impaired Gait No (0 pts) Mobility Assist Device Used No (0 pt) Altered Elimination No (0 pt) Score/Fall Risk Level 0 - 2 = Low Risk. Abuse screen: Denies threats or abuse. Denies injuries from another. Nutritional screening: No deficits noted. Tuberculosis screening: No symptoms or risk factors identified. Assessment: 08:00 General: Appears in no apparent distress. comfortable, Behavior is cooperative, kc6 appropriate for age, anxious, crying. Pain: Denies pain. Neuro: Level of Consciousness is awake, alert, obeys commands, Oriented to person, place, time, situation, Appropriate for age. Cardiovascular: Reports shortness of breath, Denies chest pain, Heart tones S1 S2 present Capillary refill < 3 seconds Rhythm is sinus tachycardia. Respiratory: Airway is patent Trachea midline Respiratory effort is even, unlabored, Respiratory pattern is regular, symmetrical, Breath sounds are clear bilaterally. GI: No signs and/or symptoms were reported involving the gastrointestinal system. : No signs and/or symptoms were reported regarding the genitourinary system. EENT: No signs and/or symptoms were reported regarding the EENT system. Derm: No signs and/or symptoms reported regarding the dermatologic system. Skin is intact, is healthy with good turgor, Skin is pink, warm \\T\\ dry. Musculoskeletal: No signs and/or symptoms reported regarding the musculoskeletal system. Circulation, motion, and sensation intact. Capillary refill < 3 seconds, Range of motion: intact in all extremities. 08:34 Reassessment: d/c pending IV fluid completion. kc6 09:22 Reassessment: Patient appears in no apparent distress at this time. No changes from kc6 previously documented assessment. Patient and/or family updated on plan of care and expected duration. Pain level reassessed. Patient is alert, oriented x 3, equal unlabored respirations, skin warm/dry/pink. Vital Signs: 07:26 BP 145 / 88; Pulse 105; Resp 18; Temp 98; Pulse Ox 97% ; Weight 63.5 kg; Height 5 ft. 0 bp in. ; 09:22 BP 135 / 91; Pulse 97; Resp 18 S; Pulse Ox 100% on R/A; kc6 07:26 Body Mass Index 27.34 (63.50 kg, 152.4 cm) bp ED Course: 07:08 Patient arrived in ED. rg4 07:15 Mian Deshpande MD is Attending Physician. mode 07:28 Triage completed. bp 07:29 Mady Diamond RN is Primary Nurse. kc6 07:29 Arm band placed on. bp 08:00 Inserted saline lock: 22 gauge in right forearm, using aseptic technique. ,using kc6 aseptic technique. by Hernandez Guerin RN. 08:01 Patient has correct armband on for positive identification. Placed in gown. Bed in low kc6 position. Call light in reach. Side rails up X 1. 08:04 XRAY Chest (1 view) In Process Unspecified. EDNY 08:34 Madi Burnett MD is Referral Physician. [facility] 09:22 No provider procedures requiring assistance completed. IV discontinued, intact, kc6 bleeding controlled, No redness/swelling at site. Pressure dressing applied. Administered Medications: 07:56 Drug: NS 0.9% IV 1000 ml Route: IV; Rate: 1 bolus; Site: right forearm; kc6 09:22 Follow up: Response: No adverse reaction; IV Status: Completed infusion; IV Intake: kc6 1000ml Medication: 09:23 VIS not applicable for this client. kc6 Intake: 09:22 IV: 1000ml; Total: 1000ml. kc6 Outcome: 08:34 Discharge ordered by . [facility] 09:23 Discharged to home ambulatory. kc6 09:23 Condition: improved 09:23 Discharge instructions given to patient, Instructed on discharge instructions, follow up and referral plans. medication usage, Demonstrated understanding of instructions, follow-up care, medications, Prescriptions given X 2. 09:23 Patient left the ED. kc6 Signatures: Dispatcher [employer] Mian Ramesh MD MD cha Garcia, Rubi rg4 Hernandez Banks, RN RN Mady Fung RN RN kc6
[2023-04-22 09:37] VITALS: TEMP 98
[2023-04-22 09:43] VITALS: BP 135/91; O2SAT 100
--- NOTE | 2023-04-22 18:25 | EKG ---
Test Date: 2023-04-22 Test Time: 07:55:00 [employer] [address] Shift: WAQAR MEASUREMENT RESULTS: Intervals: Rate: 102 ND: 112 QRSD: 66 QT: 336 QTc: 437 [place]: P: 75 ND: 112 QRS: 82 T: 59 INTERPRETIVE STATEMENTS: Sinus tachycardia Otherwise normal ECG No previous ECG available for comparison Electronically Signed On 04-22-23 18:24:34 CDT by Mehdi El
== END 2023-04-22 09:23 | disposition home or self-care (01) ==
LOC: ER 07:06
DX: F41.9 Anxiety disorder, unspecified (principal); R00.0 Tachycardia, unspecified; N39.0 Urinary tract infection, site not specified
CPT/HCPCS: 93005; 85025; 81001; 80048; 36415; 83735; 81025; 85610; 85379; 80076; 84484; 83690; 83880; 71045; J7030